=== PATIENT | female | born 1945 | race Caucasian/White ===

== ENCOUNTER 2020-04-22 19:46 | Inpatient (IN) | payer MEDICARE, OTHER ==
[2020-04-22 22:34] VITALS: BMI 41.3
[2020-04-23] MEDS ORDERED: Acetaminophen 325 MG TAB PO PRN (02:35)
[2020-04-23] MEDS ORDERED: Guaifenesin DM 100-10/5 ML UDCUP PO PRN (02:35)
--- NOTE | 2020-04-23 03:10 | PDOC.HHP ---
Hospitalist HPI - History of Present Illness History of Present Illness: ADMISSION DATE: 04/22/2020 TIME OF ASSESSMENT: 2345 PRIMARY CARE PHYSICIAN: [id number] CHIEF COMPLAINT: Shortness of breath HPI: Patient is a 75-year-old female past medical history significant for hypertension. They are currently visiting from [place] when she developed a sudden onset of shortness of breath. Patient states that she has had a cough for a week now however she appears to be a poor historian. She denies any fever, chills, contact with sick persons, GI upset. They did drive from [place] but had frequent stops. She had a negative Covid test earlier today. All imaging and lab work referenced in the H&P were obtained from her [facility] earlier today. ED COURSE: Vital Signs: Blood pressure 145/54, temp 98.9 oral, heart rate 94, respiratory rate 20, O2 saturation 99% on 2 L, no pain Patient was transferred here from [facility]. She had lab work completed including blood cultures, chest x-ray, chest CT, medication administration. She was administered vancomycin 1 g, normal saline 1 L, Rocephin 1 g, azithromycin 500 mg. PAST MEDICAL HISTORY: Hypertension PAST SURGICAL HISTORY: Shoulder surgery SOCIAL HISTORY: Patient lives at home with her . She denies alcohol, drug, tobacco use FAMILY HISTORY: Noncontributory ALLERGIES: Sulfa,Deconomine, Geodon CURRENT MEDICATIONS: Omeprazole 20 mg daily Vitamin D3 10,000 units Probiotic Claritin Adult multivitamin Melatonin 3 mg at night Lotemax Cerefolin Depakote 250 mg in a.m., 500 mg in p.m. Seroquel 25 mg Hydrochlorothiazide 12.5 mg Flonase Hospitalist ROS - Review of Systems Respiratory: reports: cough, shortness of breath, SOB with excertion, wheezing All other systems reviewed; all pertinent +/- noted in HPI/Subj - Exam General Appearance: awake alert, ill appearing Eye: PERRL ENT: normocephalic atraumatic Neck: supple Heart: RRR, no murmur, no gallops, no rubs, normal peripheral pulses Respiratory: rhonchi, tachypneic, wheezes Gastrointestinal: soft, non-tender, non-distended, normal bowel sounds Neurological: no focal deficits Musculoskeletal: no muscle wasting Psychiatric: normal affect Hospitalist Results - Labs Lab results: As obtained from the [facility] BNP: 129 Urinalysis: Negative for acute findings Sodium 144 Potassium 4.0 CO2 32 Chloride 104 Glucose 110 Calcium 11.2 BUN 24 Creatinine 1.1 GFR 51 WBC 20.8 Hemoglobin 14.7 Hematocrit 42.1 Platelets 335 Negative Covid test Negative respiratory panel - Radiology Interpretation CT scan - chest Status: report reviewed by me Additional Comment: CTA of the chest Findings: Pulmonary arteries: No filling defects identified Aortic aneurysm: No aneurysm Aortic dissection: No dissection Lungs and pleura: 1. Large multilocular right-sided pleural effusion 2. Concern for cavitary airspace/abscess in a region of atelectasis 3. Subsegmental atelectasis of the right lower lobe 4. Significant atelectasis of the right upper and middle lobes Impression: There is a cavitary lesion in the right lower lobe with air-fluid level measuring up to nearly 4 cm concerning for pulmonary abscess. This could also reflect a cavitating neoplasm or metastatic lesion. Large right-sided multilocular pleural effusion. Varying degrees of atelectasis are moderate to severe throughout the right lung. Chest x-ray Status: report reviewed by me Additional Comment: Impression: Right lung infiltrates with pleural effusion Hospitalist H&P A/P - Plan Plan: Possible pulmonary abscess along with pneumonia and pleural effusion Consult pulmonary and ID Continue IV antibiotics Request blood culture results from [facility] Leukocytosis Initial white blood count was 20.8 Recheck labs in a.m. Currently afebrile Hypoxia with acute respiratory failure Presented to ER 89% on room air Currently maintaining 93% on 2 L nasal cannula Continue close monitoring of respiratory status Hypertension Restart home medications once reconciled VTE prophylaxis in place with SCDs CODE STATUS: Full Surrogate decision-maker is her Patient and plan of care discussed with Dr Gomez
[2020-04-23] MEDS ORDERED: Vancomycin 1 GM in Premix Bag 1 BAG IVPB SCH (09:00)
--- NOTE | 2020-04-23 09:25 | RAD ---
Portable frontal chest radiograph: 04/23/2020 COMPARISON: None HISTORY: Evaluate pleural effusion FINDINGS: The left lung appears clear. No pneumothorax is evident. There is prominent opacification involving the lateral and mid aspect of the right hemithorax from ap ex to base with partially aerated right lung medially. Partial opacification of the right hemithorax suggests a combination of pleural fluid and underlying nonspecific parenchymal opacity. Th e right pleural effusion may be complex/loculated given its configuration. Underlying infectious pneumonitis and/or mass lesion cannot be excluded. No comparison imaging is available. IMPRESSION: Significant partial opacification of the right hemithorax suggesting a combination of ple ural fluid and nonspecific adjacent parenchymal opacity. Findings could be related to inflammatory/infectious process or neoplasia. CT may be beneficial.
[2020-04-23 10:07] LABS: ALT (SGPT) 17 U/L (8-55); AST (SGOT) 18 U/L (5-34); Albumin 2.8 g/dL (3.4-4.8); Alkaline Phosphatase 124 U/L (40-110); Anion Gap 15 mmol/L (10-20); BUN (Urea Nitrogen) 31 mg/dL (9.8-20.1); Bilirubin, Total 0.5 mg/dL (0.2-1.2); Calc. Creatinine Clearance 96 mL/min (70-130); Carbon Dioxide 26 mmol/L (23-31); Chloride 103 mmol/L (98-107); Globulin 3.4 g/dL (2.4-3.5); Glucose 117 mg/dL (83-110); Potassium 3.9 mmol/L (3.5-5.1); Protein, Total 6.2 g/dL (6.0-8.3); Sodium 140 mmol/L (136-145)
[2020-04-23 10:57] LABS: Hemoglobin 13.3 g/dL (12.0-16.0); Mean Corpuscular HGB CONC 31.2 g/dL (32.0-36.0); Mean Corpuscular Hemoglobin 30.6 pg (27.0-31.0); Mean Corpuscular Volume 98.3 fL (78.0-98.0); Mean Platelet Volume 8.7 fL (7.4-10.4); Platelet Count 331 thou/uL (130-400); RBC Distribution Width 12.4 % (11.5-14.5); Red Blood Cell (RBC) Count 4.34 mill/uL (4.20-5.40); White Blood Cell (WBC) Count 29.6 thou/uL (4.8-10.8)
[2020-04-23 11:00] LABS: Band 30 % (5-11); Lymphocytes 2 % (21-51); MDiff Complete? YES; Metamyelocyte 1 % (0-0); Monocytes 5 % (0-10); Neutrophil 62 % (42-75); Platelet Morphology Comment Appears Adequate; Polychromasia SLIGHT = 2-3 cells (100X) (0-2/hpf)
--- NOTE | 2020-04-23 11:28 | CON ---
DATE OF CONSULTATION: HISTORY OF PRESENT ILLNESS: A 75-year-old female from [facility] out of town visiting her daughter in [place], [place], presented to a physician in [place] [facility] in [place] with shortness of breath on [facility]. Workup including a CT and a chest x-ray, which shows loculated pleural effusion. Unfortunately, we do not have any CT images over here. A chest x-ray taken today does show pleural effusion. Very poor historian. She appears somewhat confused, sitting on the side of the bed eating breakfast, appears to be in no distress. She is a nonsmoker. No prior history of TB, pneumonia, or bronchial asthma. PAST MEDICAL HISTORY: Pertinent for no major medical problems. No history of diabetes. No surgeries recently. Past surgery of shoulder surgery. SOCIAL HISTORY: No alcohol or tobacco abuse. MEDICATIONS: List of medicines from home included: 1. Flonase. 2. Hydrochlorothiazide. 3. Depakote 250 at nighttime, 500 in the daytime. 4. Cholestyramine 4 g. 5. Eye solution. 6. Vitamins. 7. Naprosyn. 8. Omeprazole. 9. Aspirin. ALLERGIES: GEODON AND SULFA. REVIEW OF SYSTEMS: Difficult to obtain. PHYSICAL EXAMINATION: VITAL SIGNS: Temperature 98, pulse 90, respiratory rate 36, and sats 100%, blood pressure 120/80. CHEST: Decreased breath sounds in right lung. Left lung unremarkable. CARDIAC: Normal S1, S2. No gallops. ABDOMEN: No masses. LABORATORY DATA: Lab from the outside ER shows a white count 20,000. Lytes were normal. Creatinine was normal. ASSESSMENT AND PLAN: 1. Right pleural effusion, rule out empyema. 2. Encephalopathy. We will try and get additional information from family members as they arrive. I am going to go ahead and do a thoracentesis for the reaction above. We may very well have to repeat a CT over here since we unable to see the actual CT images from elsewhere. This is a consultation note, 70 minutes, 50% direct patient care exclusive of the thoracentesis. Job ID: [id number]
[2020-04-23] MEDS ORDERED: Hydrochlorothiazide 25 MG TAB PO SCH (12:00)
[2020-04-23] MEDS ORDERED: Cholecalciferol 1,000 UNITS (25 MCG) TAB PO SCH (12:00)
[2020-04-23] MEDS ORDERED: Multivitamin W/ Minerals 1 TAB PO SCH (12:00)
[2020-04-23] MEDS ORDERED: Aspirin 81 mg Enteric Coated Tablet PO SCH (12:00)
[2020-04-23] MEDS: Clindamycin/D5W 600 MG in Premix Bag 1 BAG IVPB SCH ×2 (12:36→22:33)
--- NOTE | 2020-04-23 13:27 | RAD ---
RADIOGRAPH CHEST 1 VIEW: DATE: 04/23/2020 TIME: 1:08 PM HISTORY: 75-year-old female status post thoracentesis for right pleural effusion. COMPARISON: 04/23/2020 9:13 AM FINDINGS: Previously demonstrated large loculated pleural effusion from apex to base, has become smaller. It is located at the lateral aspect of the right hemithorax. Improved aeration of right upper lobe. Right lower lung zone remains densely opacified. No cardiomegaly. No cardiomediastinal shift from mid line. Left lung remains clear. IMPRESSION: Interval decrease in volume of large right loculated pleural effusion after pleurocentesis, without p neumothorax.
[2020-04-23 14:06] LABS: Fluid, pH - Pleural Fld 7.37 (7.60 - 7.66)
[2020-04-23 14:37] LABS: Fluid, Triglycerides 29 mg/dL (Not Available); Pleural Fluid, Amylase Less than 30 U/L (Not Available); Pleural Fluid, Glucose 84 mg/dL; Pleural Fluid, LDH 505 U/L (Not Available); Pleural Fluid, Protein 3.5 g/dL
[2020-04-23 14:58] LABS: RBC Count-Automated (BF) 516 /cu.mm; WBC/Nucleated-Auto (BF) 3032 uL
[2020-04-23 15:49] LABS: BF Color Yellow; Body Fluid Source Pleural Fluid; Clarity Hazy (Clear); Tube # EDTA
[2020-04-23 15:52] LABS: BF Segmented Neutrophils 67 %; Cell Count Non Hematic 16 %; Eosinophils 1 %; Lymphocytes 15 %
--- NOTE | 2020-04-23 16:14 | PDOC.HOSPP ---
- Subjective Encounter Date: 04/23/20 Encounter Time: 10:30 Subjective: pt up in chair hard of hearing. - Objective Vital Signs & Weight: Vital Signs (12 hours) Temp Pulse Resp BP Pulse Ox 04/23/20 08:55 98.3 F 99 36 H 125/80 100 04/23/20 04:54 98.3 F 102 H 18 130/60 97 Weight Weight 256 lb 8 oz I&O: 04/22/20 04/23/20 04/24/20 06:59 06:59 06:59 Intake Total 240 Output Total 100 Balance 140 Result Diagrams: 04/23/20 09:30 04/23/20 09:30 Hospitalist ROS - Review of Systems Respiratory: reports: cough, shortness of breath Cardiovascular: denies: chest pain, palpitations, orthopnea, paroxysmal noc. dyspnea, edema, light headedness, other Gastrointestinal: denies: nausea, vomiting, abdominal pain, diarrhea, constipation, melena, hematochezia, other - Medication Medications: Active Medications Generic Name Dose Route Start Last Admin Trade Name Freq PRN Reason Stop Dose Admin Clindamycin Phosphate/Dextrose 50 mls @ 100 mls/hr 04/23/20 12:00 04/23/20 12:36 600 mg/ Device IVPB 50 mls 0400,1200,2000 POPEYE Administration - Exam Neck: negative: supple, symmetric, no JVD, no thyromegaly, no lymphadenopathy, no carotid bruit, JVD Heart: negative: RRR, no murmur, no gallops, no rubs, normal peripheral pulses, irregular, diminshed peripheral pulses, murmur present, II/IV, III/IV Respiratory - other findings: decrease breath sounds to right lung Gastrointestinal: negative: soft, non-tender, non-distended, normal bowel sounds, no palpable masses, no hepatomegaly, no splenomegaly, no bruit, no guarding, no rigidity, tender to palpation, distended, diminished bowl sounds, voluntary guarding Extremities: 2+ LE edema Hosp A/P (1) Cavitary lesion of lung Code(s): J98.4 - OTHER DISORDERS OF LUNG Status: Acute (2) SOB (shortness of breath) Code(s): R06.02 - SHORTNESS OF BREATH Status: Acute (3) Sepsis Code(s): A41.9 - SEPSIS, UNSPECIFIED ORGANISM Status: Acute - Plan will continue abx will add anaerobic coverage. will get disk from outside hospital. will check quantiferon, ID and pulmonary consulted.
[2020-04-23] MEDS ORDERED: Azithromycin 500 MG in Sodium Chloride 0.9% 250 ML 250 ML IVPB SCH (18:00)
[2020-04-23] MEDS: cefTRIAXone\\ROCEPHIN 2 GM in Sodium Chloride 0.9% 100 ML IVPB SCH (18:14)
--- NOTE | 2020-04-23 18:20 | CON ---
DATE OF CONSULTATION: 04/23/2020 REASON FOR CONSULTATION: Parapneumonic effusion, pneumonia, lung abscess. HISTORY OF PRESENT ILLNESS: A 75-year-old who is visiting from [place], family members here in town, and developed acute medical illness with dyspnea, cough, preceded this dyspnea for about a week, did not have any documented fever or chills, went to [facility], and had a CT of the chest there, was given Rocephin, azithromycin, and vancomycin, and transferred for admission. Once the results were available, basically those demonstrated a large multilocular right-sided pleural effusion, possible abscess in the region (in the right lung). There is air-fluid level measuring up to 4 cm, so Dr. Joseph did a thoracentesis and the fluid had 3000 WBCs with predominance of segmented neutrophils and pending pathology review. LDH of 500, glucose 84, amylase less than 30, protein 3.5. I believe that chest surgeon is going to operate her tomorrow. She currently is in no distress. Denies any headaches. No visual symptoms, sore throat, odynophagia, or dysphagia. Not much pain. Dyspnea has improved. No abdominal pain or diarrhea. No genitourinary symptoms, osteoarthrosis symptoms, which are chronic. No neurological symptoms. PAST MEDICAL HISTORY: Hypertension, obesity, she had falls related to syncopal events. SOCIAL HISTORY: She lives in [place]. She is . Does not smoke. Does not drink. Rarely drinks alcoholic beverages. She also has a history of bipolar syndrome, on Depakote for management. Does not take sedatives. ALLERGIES: SULFA DRUGS, GEODON. CURRENT MEDICATIONS: 1. Floranex. 2. Ecotrin. 3. Ceftriaxone. 4. Vitamin D. 5. Clindamycin. 6. Depakote. 7. Flonase. 8. Hydrochlorothiazide. 9. Multivitamins. REVIEW OF SYSTEMS: Noted. PHYSICAL EXAMINATION: VITAL SIGNS: Normal temperature, blood pressure 120/80, heart rate 99, respiratory rate 18 to 36, she is saturating 100% on 3 L nasal cannula. When I arrived in the room, she was sleeping. Her gave most of the information and she woke up. She was oriented. Denied any symptoms as above. SKIN: Normal peripheral IV access. GENERAL: She is voiding in the bedside commode. LYMPHATIC: No lymphadenopathy. HEENT: Ocular movements conjugate, quite a few teeth in place with some work done in fairly decent shape. Oral mucosa normal. NECK: Supple. LUNGS: Symmetric. Clear breath sounds. Lungs with diminished breath sounds as expected in the right base. No wheezing. HEART: S1 and S2. Regular rate. ABDOMEN: Soft, not distended or tender. No ascites. : No bladder distention. MUSCULOSKELETAL: No joint inflammatory activity. NEUROLOGIC: Moves extremities equally. Cognitive function appears to be intact. LABORATORY DATA: Pleural fluid as indicated above. White cell count 29,000 with 30% bands, hemoglobin 13. Creatinine 0.96, alkaline phosphatase 124, albumin 2.8. SARS-CoV PCR done as well as a rapid test and both were negative at [facility] and here chest x-ray with before and after thoracentesis images. ASSESSMENT: Obesity, bipolar disorder, and acute onset of respiratory symptoms with large pleural effusion and suppurative inflammatory process of right lung adjacent to the pleural effusion most likely due to oral georgi type bacteria with microaerophilic streptococci or anaerobes causing this process. The patient has been started on broad- spectrum coverage with clindamycin and Rocephin and I believe surgical intervention scheduled for tomorrow. Following that, then once we have the culture results as well as the sample submitted today, plan long-term therapy. The possibility of malignancy and atypical pathogens are considered to be less likely. Job ID: [id number]
--- NOTE | 2020-04-23 18:41 | CON ---
DATE OF CONSULTATION: HISTORY OF PRESENT ILLNESS: This is a 75-year-old patient with a history of bipolar disorder with about 1-month history of cough and then about a 1-week history of more severe cough associated with some more recent confusion and difficulty standing, prompting the patient's family to bring her to the hospital. She does not live locally, but she and her were visiting family in [place]. She was found to have a large right pleural effusion with thoracentesis of a liter revealing some greenish fluid and flow then ceased, yet her chest x-ray shows residual loculated collection. PAST MEDICAL HISTORY: Includes bipolar disorder with no other major medical problems. She does have sleep apnea, but refuses to wear her BiPAP at night. She has no cardiac history according to the . PAST SURGICAL HISTORY: Significant for hand surgery, shoulder surgery, broken leg from a fall, pituitary adenoma removal, cataract surgery, and cholecystectomy. ALLERGIES: TO GEODON AND SULFA. HOME MEDICATIONS: Include 1. Depakote 125 mg 2 tablets at night and 4 tablets in the daytime. 2. Hydrochlorothiazide 100 mg daily. 3. Prilosec 10 mg daily. 4. She takes cholestyramine 4 g daily. PHYSICAL EXAMINATION: GENERAL: The patient is quite somnolent, and when she awakens, is hard of hearing. LUNGS: She has some expiratory wheezing on the right side, but otherwise the lungs are clear anteriorly. CARDIAC: Reveals a regular rate and rhythm with no murmurs. ABDOMEN: Obese. EXTREMITIES: Without edema. VITAL SIGNS: Height 5 feet 6 inches, weight 256 pounds with a BMI of 41. IMPRESSION AND PLAN: At this time, I have reordered a repeat CT scan with plan for right thoracoscopy/thoracotomy tomorrow. I have gone over the procedure, risks, and complications with the , and he asked some questions, which I have answered in this regard, and informed consent has been obtained. Job ID: [id number]
--- NOTE | 2020-04-23 19:57 | CT ---
CT CHEST WITHOUT CONTRAST: Date: 04-23-2020 PROVIDED CLINICAL HISTORY: Shortness of breath, pleural effusion. FINDINGS: No CT comparisons. Vascular calcification demonstrated. The heart, pericardium, and great vessels demonstrate an otherwi se unremarkable unenhanced CT appearance. Evaluation for thoracic lymph node enlargement is limited in the absence of IV contrast. There is no evidence for axillary lymph node enlargement. There are prominent by number and upper limits normal i n size pretracheal lymph nodes. Hilar adenopathy may be present on the right. There is pleural fluid on the right, which appears loculated at the posterolateral aspect of the righ t hemithorax in its mid to upper portions. Some pleural fluid is also loculated at the anterior aspec t of the right lower chest. There is consolidation involving the right lower lobe involving much of the basilar segments. There i s a poorly defined/narrowed appearance to the distal right lower lobe bronchus and proximal segmental basilar bronchi suspicious for endobronchial mass/material. The left lung appears free of significant opacity. There is no left pleural fluid evident. There is n o evidence for pneumothorax. The visualized portions of the upper abdomen demonstrate an unremarkable unenhanced CT appearance. The osseous structures demonstrate no concerning lytic or blastic lesions. IMPRESSION: 1. Consolidation involving the right lower lobe, which could be on the basis of a post obstructive pn eumonitis given the apparent airway effacement described. 2. Mediastinal and possible right hilar lymph node enlargement. 3. Right pleural fluid with loculation as described. POS: MONICA
[2020-04-23] MEDS: Calcium Carbonate + Vit D 250 MG TAB PO SCH (22:33)
[2020-04-23] MEDS: Cholestyramine/Aspartame 4 gm Packet PO SCH (22:33)
[2020-04-24 04:34] LABS: #Basophils 0.1 thou/uL (0.0-0.2); #Eosinphils 0.1 thou/uL (0.0-0.7); #Monocytes 1.7 thou/uL (0.11-0.59); #Neutrophils 20.3 thou/uL (1.40-6.50); %Basophils 0.2 % (0.0-1.0); %Eosinophils 0.4 % (0.0-10.0); %Lymphocytes 4.3 % (21.0-51.0); %Monocytes 7.2 % (0.0-10.0); %Neutrophils 87.8 % (42.0-75.0); Hemoglobin 12.8 g/dL (12.0-16.0); Mean Corpuscular HGB CONC 32.4 g/dL (32.0-36.0); Mean Corpuscular Hemoglobin 32.1 pg (27.0-31.0); Mean Platelet Volume 8.6 fL (7.4-10.4); Platelet Count 266 thou/uL (130-400); RBC Distribution Width 12.4 % (11.5-14.5); Red Blood Cell (RBC) Count 3.99 mill/uL (4.20-5.40); White Blood Cell (WBC) Count 23.1 thou/uL (4.8-10.8)
[2020-04-24 04:59] LABS: Anion Gap 15 mmol/L (10-20); BUN (Urea Nitrogen) 29 mg/dL (9.8-20.1); Calc. Creatinine Clearance 116 mL/min (70-130); Calcium 10.1 mg/dL (7.8-10.44); Carbon Dioxide 27 mmol/L (23-31); Chloride 100 mmol/L (98-107); Glucose 110 mg/dL (83-110); Potassium 3.9 mmol/L (3.5-5.1); Sodium 138 mmol/L (136-145)
[2020-04-24] MEDS: Clindamycin/D5W 600 MG in Premix Bag 1 BAG IVPB SCH ×3 (05:54→19:29)
--- NOTE | 2020-04-24 07:42 | OP ---
DATE OF PROCEDURE: 04/23/2020 PROCEDURE PERFORMED: Thoracentesis. INDICATION: Pleural effusion. DESCRIPTION OF PROCEDURE: After informed consent, the right posterior thorax was cleaned with chlorhexidine. 1% lidocaine was infiltrated into the 9th intercostal space and pleural cavity was entered in. Turbid yellow fluid was removed about 2 mL. Additional lidocaine was re-infiltrated into the same area. At this time, additional 3 mL of turbid yellow fluid was removed. Thereafter, using an 8-Telugu catheter and a vacuum bottle, a total of 1200 mL of fluid was removed. PH is being ordered. Culture is being ordered. Gram stain is being ordered. Cytology is being ordered. The patient tolerated the procedure well. Further recommendation after above. Job ID: [id number]
--- NOTE | 2020-04-24 07:43 | RAD ---
Chest one view HISTORY: Pleural effusion. Pneumonia. Follow-up. COMPARISON: 04/09/2020. FINDINGS: Cardiac silhouette is magnified by projection is slightly shifted leftward. There is calcif ication of the aorta. Pulmonary vasculature remains engorged. Dense pleural opacity along the lateral aspect of the right side of the chest is slightly more pronou nced than on the prior exam, allowing for slight rotation or recumbent positioning of the patient on this exam labeled "upright". Associated atelectasis of the adjacent portion of the right lung. Lef t lung is clear. No evidence of pneumothorax. Postoperative changes right shoulder. IMPRESSION : Probable slight increase in the loculated right pleural fluid.
[2020-04-24] MEDS: Hydrochlorothiazide 25 MG TAB PO SCH (09:04)
[2020-04-24] MEDS: Lactinex Tablet PO SCH (09:06)
[2020-04-24] MEDS: Cholecalciferol 1,000 UNITS (25 MCG) TAB PO SCH (09:06)
[2020-04-24] MEDS: Fluticasone Propionate Nasal Spray 16 gm Bottle NASAL SCH (09:06)
--- NOTE | 2020-04-24 09:37 | PRG ---
DATE OF SERVICE: 04/24/2020 SUBJECTIVE: Fernie Fitch remains in the hospital. OBJECTIVE: VITAL SIGNS: Temperature 98, pulse , sats 97% on room air and is better, blood pressure . CHEST: Decreased breath sounds in right lung, left unremarkable. CARDIAC: Normal S1, S2. No gallops. ABDOMEN: No masses. LABORATORY STUDIES: Lytes unremarkable. White count 23,000. ASSESSMENT: 1. Right-sided loculated pleural effusion, status post thoracentesis. 2. Bipolar disorder. PLAN: Decortication. Continue antibiotics and supportive care. We will follow. Job ID: [id number]
[2020-04-24] MEDS ORDERED: Rocuronium Bromide 10 MG/ML (10ML VIAL) ONE (09:54)
[2020-04-24] MEDS ORDERED: Ketorolac Tromethamine 30 MG/ML VIAL ONE (09:54)
[2020-04-24] MEDS ORDERED: Ondansetron PF 4 MG/2 ML Vial ONE (09:54)
[2020-04-24] MEDS ORDERED: PROPOFOL 200 MG/20 ML VIAL ONE (09:54)
[2020-04-24] MEDS ORDERED: Lidocaine 1% PF 5 ML VIAL ONE (09:54)
[2020-04-24] MEDS ORDERED: Dexamethasone 20 MG/5 ML VIAL ONE (09:54)
[2020-04-24] MEDS ORDERED: Fentanyl 100 MCG/2 ML VIAL ONE ×4 (09:58→20:02)
[2020-04-24] MEDS ORDERED: Ondansetron HCl/PF 4 MG/2 ML Vial IVP PRN (11:59)
[2020-04-24] MEDS ORDERED: Ketorolac Tromethamine 30 MG/ML VIAL IVP PRN (14:26)
[2020-04-24] MEDS ORDERED: traMADol HCl 50 MG TAB PO PRN (14:26)
--- NOTE | 2020-04-24 14:55 | RAD ---
XR Chest 1 View History: Decortication Comparison: Radiograph same day. Findings: 2 separate right thoracostomy tubes are in place with side ports within the thoracic cavity . Moderate layering effusion. Heart size is enlarged. Left lung relatively clear. Impression: Moderate-large layering right pleural effusion post decortication.
--- NOTE | 2020-04-24 16:19 | PDOC.HOSPP ---
- Subjective Encounter Date: 04/24/20 Encounter Time: 16:18 Subjective: Ms. Fitch was seen today in follow-up of pneumonia with parapneumonic effusion, and empyema. She was seen in PACU, and is post-op. She is a bit confused, and says she wants to go home. She has been kept in PACU due to difficulty weaning from BiPAP. - Objective Vital Signs & Weight: Vital Signs (12 hours) Temp Pulse Resp BP Pulse Ox 04/24/20 12:50 85 22 H 93 L 04/24/20 07:59 98.8 F 91 16 126/59 L 97 04/24/20 05:01 98.5 F 92 15 118/76 92 L Weight Weight 256 lb 8 oz I&O: 04/23/20 04/24/20 04/25/20 06:59 06:59 06:59 Intake Total 240 240 Output Total 100 Balance 140 240 Result Diagrams: 04/24/20 04:25 04/24/20 04:25 Hospitalist ROS - Medication Medications: Active Medications Generic Name Dose Route Start Last Admin Trade Name Freq PRN Reason Stop Dose Admin Acidophilus 1 tab 04/24/20 09:00 04/24/20 09:06 Lactinex Tablet PO 1 tab DAILY POPEYE Administration Calcium/Vitamin D 2 mg 04/23/20 21:00 04/23/20 22:33 Calcium Carbonate + Vit D 250 Mg Tab PO 2 mg BID POPEYE Administration Cholecalciferol 10,000 units 04/24/20 09:00 04/24/20 09:06 Cholecalciferol 1,000 Units (25 Mcg) Tab PO Not Given DAILY POPEYE Cholestyramine Resin 4 gm 04/23/20 21:00 04/23/20 22:33 Cholestyramine/Aspartame 4 Gm Packet PO 4 gm HS POPEYE Administration Divalproex Sodium 500 mg 04/24/20 09:00 04/24/20 09:05 Divalproex Sodium Er 500 Mg Tablet PO 500 mg DAILY POPEYE Administration Divalproex Sodium 250 mg 04/23/20 21:00 04/23/20 22:33 Divalproex Sodium Er 250 Mg Tab PO 250 mg HS POPEYE Administration Fluticasone Propionate 0 gm 04/24/20 09:00 04/24/20 09:06 Fluticasone Propionate Nasal Shelley 16 Gm Bottle NASAL Not Given DAILY POPEYE Hydrochlorothiazide 12.5 mg 04/24/20 09:00 04/24/20 09:04 Hydrochlorothiazide 25 Mg Tab PO 12.5 mg DAILY POPEYE Administration Ceftriaxone Sodium 2 gm/ 100 mls @ 200 mls/hr 04/23/20 17:00 04/23/20 18:14 Sodium Chloride IVPB 100 mls Q24HR POPEYE Administration Clindamycin Phosphate/Dextrose 50 mls @ 100 mls/hr 04/23/20 12:00 04/24/20 05:54 600 mg/ Device IVPB 50 mls 0400,1200,2000 POPEYE Administration Pantoprazole Sodium 40 mg 04/24/20 09:00 04/24/20 09:06 Pantoprazole 40 Mg Tab PO 40 mg DAILY POPEYE Administration - Exam Eye: PERRL, anicteric sclera Heart: RRR, no murmur, no gallops, no rubs, normal peripheral pulses Respiratory: no rales (decreased breath sounds at the bases, and coarse breath sounds throughout) Gastrointestinal: soft, non-tender, non-distended, normal bowel sounds, no palpable masses, no hepatomegaly Extremities: no cyanosis, 1+ LE edema Hosp A/P (1) Acute and chronic respiratory failure Code(s): J96.20 - ACUTE AND CHR RESP FAILURE, UNSP W HYPOXIA OR HYPERCAPNIA Status: Acute (2) Pneumonia Code(s): J18.9 - PNEUMONIA, UNSPECIFIED ORGANISM Status: Acute (3) Empyema, right Code(s): J86.9 - PYOTHORAX WITHOUT FISTULA Status: Acute (4) Hypertension Code(s): I10 - ESSENTIAL (PRIMARY) HYPERTENSION Status: Acute (5) Morbid obesity with BMI of 40.0-44.9, adult Code(s): E66.01 - MORBID (SEVERE) OBESITY DUE TO EXCESS CALORIES; Z68.41 - BODY MASS INDEX [BMI]40.0-44.9, ADULT Status: Acute - Plan * Acute on chronic respiratory failure due to pneumonia with right emypema- She is s/p decortication. She has been held in PACU due to difficulty weaning off BiPAP. She likely should be [facility] to [facility] ( I am told they do not have any beds available) Will therefore defer to Pulmonary * She may need BiPAP or CPAP at night * Continue Rocephin and Clindamycin * Follow-up of sputum studies and cultures * Follow-up of AFB and Quanteferon * HTN- blood pressure is stable
[2020-04-24] MEDS ORDERED: cefTRIAXone\\ROCEPHIN 2 GM VIAL ONE (17:25)
[2020-04-24] MEDS ORDERED: Sodium Chloride 0.9% 100 ML ONE (17:25)
[2020-04-24] MEDS: Aspirin 81 mg Enteric Coated Tablet PO SCH (18:11)
[2020-04-24] MEDS: Calcium Carbonate + Vit D 250 MG TAB PO SCH (18:11)
[2020-04-24] MEDS: Multivitamin W/ Minerals 1 TAB PO SCH (18:12)
[2020-04-24] MEDS ORDERED: Clindamycin/D5W 600 mg/50 ml Premix Bag ONE (19:12)
[2020-04-25] MEDS: Calcium Carbonate + Vit D 250 MG TAB PO SCH (01:02)
[2020-04-25] MEDS: cefTRIAXone\\ROCEPHIN 2 GM in Sodium Chloride 0.9% 100 ML IVPB SCH (01:02)
[2020-04-25] MEDS: Enoxaparin Sodium 40 MG/0.4 ML SYRINGE SC SCH ×2 (01:03→21:14)
[2020-04-25] MEDS: Cholestyramine/Aspartame 4 gm Packet PO SCH ×2 (01:03→21:14)
[2020-04-25] MEDS: Clindamycin/D5W 600 MG in Premix Bag 1 BAG IVPB SCH ×3 (04:00→20:19)
[2020-04-25 05:26] LABS: Anion Gap 17 mmol/L (10-20); BUN (Urea Nitrogen) 42 mg/dL (9.8-20.1); Calc. Creatinine Clearance 86 mL/min (70-130); Carbon Dioxide 26 mmol/L (23-31); Chloride 99 mmol/L (98-107); Glucose 115 mg/dL (83-110); Potassium 4.3 mmol/L (3.5-5.1); Sodium 138 mmol/L (136-145)
[2020-04-25 06:05] LABS: Band 36 % (5-11); Lymphocytes 6 % (21-51); MDiff Complete? YES; Mean Corpuscular HGB CONC 32.2 g/dL (32.0-36.0); Mean Corpuscular Volume 99.4 fL (78.0-98.0); Mean Platelet Volume 8.8 fL (7.4-10.4); Neutrophil 58 % (42-75); Platelet Count 338 thou/uL (130-400); Platelet Morphology Comment Appears Adequate; RBC Distribution Width 12.8 % (11.5-14.5); Red Blood Cell (RBC) Count 4.05 mill/uL (4.20-5.40); White Blood Cell (WBC) Count 26.8 thou/uL (4.8-10.8)
--- NOTE | 2020-04-25 06:26 | OP ---
DATE OF PROCEDURE: 04/24/2020 PREOPERATIVE DIAGNOSIS: Empyema. POSTOPERATIVE DIAGNOSIS: Empyema secondary to lower lobe pneumonia. PROCEDURE PERFORMED: Thoracoscopy with total lung decortication, drainage of empyema. ANESTHESIA: General. ESTIMATED BLOOD LOSS: Minimal. DESCRIPTION OF PROCEDURE: After adequate anesthesia had been obtained, the patient was placed in the left lateral decubitus position. She was then prepped and draped. A skin crease was chosen for the initial incision and using blunt dissection and sharp dissection, carried down to the rib cage and the chest was entered. It felt like the diaphragm was right at that incision. However, a finger inserted more cranial resulted in some yellow to clear fluid. A 10 trocar was placed and the scope was inserted and loculations were broken down to allow a second more cranial and anterior port site. Following this, using both port sites interchangeably the upper lobe was fully mobilized from the chest wall. The lower lobe was more solid in nature and one area of suspected perforation with purulence was found. Peel was removed from the lower lobe however a plane could not be established between diaphragm (which was elevated) and the lower lobe. Debris removed from the chest wall. Following this, about 2 L of irrigation was used to irrigate the chest and a #28 straight and 32 right angle chest tube were placed. Wounds were then closed and the patient was to be taken to the recovery room. Job ID: [id number] [facility]
[2020-04-25] MEDS: Cholecalciferol 1,000 UNITS (25 MCG) TAB PO SCH (08:18)
[2020-04-25] MEDS: Lactinex Tablet PO SCH (08:19)
[2020-04-25] MEDS: Hydrochlorothiazide 25 MG TAB PO SCH (08:19)
[2020-04-25] MEDS: Calcium Carbonate 600 MG + Vit D TAB PO SCH ×2 (08:19→22:36)
[2020-04-25] MEDS: Aspirin 81 mg Enteric Coated Tablet PO SCH (08:19)
[2020-04-25] MEDS: Fluticasone Propionate Nasal Spray 16 gm Bottle NASAL SCH (08:20)
[2020-04-25] MEDS: Multivitamin W/ Minerals 1 TAB PO SCH (08:20)
--- NOTE | 2020-04-25 09:33 | PRG ---
DATE OF SERVICE: 04/25/2020 SUBJECTIVE: Fernie Fitch this morning is awake, alert, and responsive. She has had breakfast. She is off the BiPAP. OBJECTIVE: VITAL SIGNS: Temperature 97, pulse 70, sats 100% on 3 L. Blood pressure . CHEST: Decreased breath sounds. No wheezing. CARDIAC: Normal S1, S2. ABDOMEN: No masses. LABORATORY DATA: White count is 26,000, H and H 10 and 40, platelet count is normal. She has band shift, BUN is 42, creatinine 1. ASSESSMENT: Respiratory failure, morbid obesity, bipolar disorder, aggressive PT supportive care, antibiotics. So far, all cultures are negative. She remains stable. She can be transferred to medical floor later on. We will continue to follow. Job ID: [id number]
--- NOTE | 2020-04-25 09:45 | PRG ---
DATE OF SERVICE: 04/25/2020 The patient is afebrile on post decortication. She was quite sleepy yesterday and I think that this is her baseline as best I can tell from talking to her. She says she sleeps most of the day at home. Her chest x-ray is improved compared to preop and she still has a rather dense right lower lobe consolidation from pneumonia. Her chest tube output is 220 mL with no air leak. Her lungs are clear and her pain is controlled. She is off the BiPAP and I think probably her chest tubes will be removed in the next day or so. I discussed the case with Dr. Joseph in regard to antibiotics, and he is switching her to Augmentin. Job ID: [id number]
--- NOTE | 2020-04-25 09:59 | RAD ---
PORTABLE CHEST: INDICATION: Empyema. ICU followup. COMPARISON: 04/24/2020. FINDINGS: There are 2 right-sided chest tubes which are unchanged in position. Opacification of the right lowe r lung is again seen consistent with a history of empyema. The left lung remains aerated and clear. IMPRESSION: No significant interval change. POS: AGW
[2020-04-25] MEDS: Amoxicillin/Potassium Clav 875 MG TAB PO SCH ×2 (10:51→22:36)
--- NOTE | 2020-04-25 12:38 | PDOC.HOSPP ---
- Subjective Encounter Date: 04/25/20 Encounter Time: 12:36 Subjective: sleepy but arousable - Objective Vital Signs & Weight: Vital Signs (12 hours) Temp Pulse Resp Pulse Ox 04/25/20 08:00 95 04/25/20 07:21 96.9 F L 04/25/20 04:00 97.1 F L 04/25/20 00:52 97.8 F 04/25/20 00:49 79 24 H Weight Weight 256 lb 8 oz Most Recent Monitor Data Heart Rate from ECG 89 NIBP 115/62 NIBP BP-Mean 79 Respiration from ECG 23 SpO2 99 I&O: 04/24/20 04/25/20 04/26/20 06:59 06:59 06:59 Intake Total 240 Output Total 220 Balance 240 -220 Result Diagrams: 04/25/20 04:27 04/25/20 04:27 Hospitalist ROS - Medication Medications: Active Medications Generic Name Dose Route Start Last Admin Trade Name Freq PRN Reason Stop Dose Admin Acidophilus 1 tab 04/24/20 09:00 04/25/20 08:19 Lactinex Tablet PO 1 tab DAILY POPEYE Administration Amoxicillin/Clavulanate Potassium 875 mg 04/25/20 09:00 04/25/20 10:51 Amoxicillin/Potassium Clav 875 Mg Tab PO 05/05/20 09:01 875 mg Q12HR POPEYE Administration Aspirin 81 mg 04/24/20 09:00 04/25/20 08:19 Aspirin 81 Mg Enteric Coated Tablet PO 81 mg DAILY POPEYE Administration Calcium/Vitamin D 1 tab 04/25/20 09:00 04/25/20 08:19 Calcium Carbonate 600 Mg + Vit D Tab PO 1 tab BID POPEYE Administration Cholecalciferol 10,000 units 04/24/20 09:00 04/25/20 08:18 Cholecalciferol 1,000 Units (25 Mcg) Tab PO 10,000 units DAILY POPEYE Administration Cholestyramine Resin 4 gm 04/23/20 21:00 04/25/20 01:03 Cholestyramine/Aspartame 4 Gm Packet PO Not Given HS POPEYE Divalproex Sodium 500 mg 04/24/20 09:00 04/25/20 08:20 Divalproex Sodium Er 500 Mg Tablet PO 500 mg DAILY POPEYE Administration Enoxaparin Sodium 40 mg 04/24/20 21:00 04/25/20 01:03 Enoxaparin Sodium 40 Mg/0.4 Ml Syringe SC Not Given 2100 POPEYE Fluticasone Propionate 0 gm 04/24/20 09:00 04/25/20 08:20 Fluticasone Propionate Nasal [place] 16 Gm Bottle NASAL Not Given DAILY POPEYE Clindamycin Phosphate/Dextrose 50 mls @ 100 mls/hr 04/23/20 12:00 04/25/20 04:00 600 mg/ Device IVPB 50 mls 0400,1200,2000 POPEYE Administration Iron/Minerals/Multivitamins 1 tab 04/24/20 09:00 04/25/20 08:20 Multivitamin W/ Minerals 1 Tab PO 1 tab DAILY POPEYE Administration Pantoprazole Sodium 40 mg 04/24/20 09:00 04/25/20 08:19 Pantoprazole 40 Mg Tab PO 40 mg DAILY POPEYE Administration - Exam Neck: no JVD Heart: RRR, no murmur Respiratory - other findings: dull R base with rales/rhonchi Gastrointestinal: soft, non-distended, normal bowel sounds Extremities: no edema Hosp A/P (1) Empyema, right Code(s): J86.9 - PYOTHORAX WITHOUT FISTULA Status: Acute (2) Pneumonia Code(s): J18.9 - PNEUMONIA, UNSPECIFIED ORGANISM Status: Acute Qualifiers: Pneumonia type: due to Pseudomonas Laterality: right Lung location: lower lobe of lung Qualified Code(s): J15.1 - Pneumonia due to Pseudomonas (3) Acute respiratory failure with hypoxemia Code(s): J96.01 - ACUTE RESPIRATORY FAILURE WITH HYPOXIA Status: Acute (4) Hypertension Code(s): I10 - ESSENTIAL (PRIMARY) HYPERTENSION Status: Chronic Qualifiers: Hypertension type: essential hypertension Qualified Code(s): I10 - Essential (primary) hypertension - Plan on iv clindamycin, po augmentin chest tube on right selected home meds discuss with dietary supervisor
--- NOTE | 2020-04-25 14:37 | PQF ---
CLINICAL DOCUMENTATION CLARIFICATION FORM: Dear Dr. Bruce Date: 04/25/2020 Please exercise your independent, professional judgment in responding to the clarification form. Clinical indicators are provided on the bottom of this form for your review. Please check appropriate box(s): [ x] Sepsis due to Pneumonia with Empyema [ ] Severe Sepsis with associated organ dysfunction: [ ] Acute hypoxic respiratory failure [ ] Encephalopathy [ ] SIRS due to non-infectious process (please specify): [ ] With Acute Organ Dysfunction [ ] Without Acute Organ Dysfunction [ ] Localized Infection without Sepsis [ ] Other diagnosis [ ] Unable to determine In addition, please specify: Present on Admission (POA): [ x ] Yes [ ] No [ ] Unable to determine For continuity of documentation, please document condition throughout progress notes and discharge summary. Thank You. CLINICAL INDICATORS - SIGNS / SYMPTOMS / LABS / RESULTS AND LOCATION IN EMR *H&P 04/22 ([facility]): * Vital Signs: Blood pressure 145/54, temp 98.9 oral, heart rate 94, RR 20, O2 saturation 99% on 2L * Possible pulmonary abscess along with pneumonia and pleural effusion * Leukocytosis Initial white blood count was 20.8 Currently afebrile * Hypoxia with acute respiratory failure *LAB ([facility]): WBC Neutrophils % Band Neuts % 04/23 29.6 30 04/24 23.1 87.8 04/25 26.8 36 *Consultation 04/23 ([facility]): * She appears somewhat confused * Encephalopathy *PN 04/23 ([facility]): Sepsis *PN 04/24 ([facility]): Acute on Chronic respiratory failure due to pneumonia with right empyema- She is s/p decortication. RISK FACTORS / RESULTS AND LOCATION IN EMR *H&P 04/22 ([facility]): Possible pulmonary abscess along with pneumonia and pleural effusion TREATMENTS / RESULTS AND LOCATION IN EMR *H&P 04/22 ([facility]): Consult pulmonary and ID Continue IV antibiotics Request blood culture results from [facility] Recheck labs in a.m. 2 L nasal cannula *Operative Notes 04/24 ([facility]): Thoracentesis *Operative Notes 04/25 ([facility]): Thorascopy with total lung decortication, drainage of empyema *Microbiology 04/23 ([facility]): Source Pleural Fluid *LAB ([facility]): CBC Daily 04/23 - 04/25 Thank you, Anali CDS/Physical Therapist Technician Signature: Anali Anand RN, CDS Phone #: [phone] [email or web address] This is a permanent part of the Medical Record [employer] [facility]
[2020-04-26 04:47] LABS: Anion Gap 13 mmol/L (10-20); BUN (Urea Nitrogen) 43 mg/dL (9.8-20.1); Calc. Creatinine Clearance 101 mL/min (70-130); Carbon Dioxide 30 mmol/L (23-31); Chloride 97 mmol/L (98-107); Potassium 4.1 mmol/L (3.5-5.1); Sodium 136 mmol/L (136-145)
[2020-04-26 04:48] LABS: Calcium 10.2 mg/dL (7.8-10.44); Glucose 103 mg/dL (83-110)
[2020-04-26 04:55] LABS: Band 13 % (5-11); Eosinophils 3 % (0-10); Hemoglobin 12.8 g/dL (12.0-16.0); Lymphocytes 9 % (21-51); MDiff Complete? YES; Mean Corpuscular HGB CONC 31.7 g/dL (32.0-36.0); Mean Corpuscular Hemoglobin 31.2 pg (27.0-31.0); Mean Corpuscular Volume 98.6 fL (78.0-98.0); Mean Platelet Volume 8.4 fL (7.4-10.4); Monocytes 8 % (0-10); Neutrophil 67 % (42-75); Platelet Count 313 thou/uL (130-400); Platelet Morphology Comment Appears Adequate; RBC Distribution Width 12.8 % (11.5-14.5); RBC Morphology Normal; Red Blood Cell (RBC) Count 4.11 mill/uL (4.20-5.40)
[2020-04-26] MEDS: Clindamycin/D5W 600 MG in Premix Bag 1 BAG IVPB SCH ×3 (05:08→23:35)
--- NOTE | 2020-04-26 07:41 | PRG ---
DATE OF SERVICE: 04/26/2020 The patient is now postoperative day #2 from thoracoscopy and decortication. Her vital signs been stable. She has been afebrile. Her chest tube output has been less than 100 mL of serous fluid in the last 24 hours with no air leak. Her chest x-ray continues to look stable with some consolidation in the right lower lobe, but no obvious free fluid. Her chest tubes were removed today. Cultures remain free and she is being maintained on antibiotics, although her white count is starting to decrease today. Otherwise, she remains rather reluctant to move around or do much of anything other than lie there and sleep. She tells me that this is pretty much all she does at home as well. Disposition per the admitting service. Job ID: [id number]
--- NOTE | 2020-04-26 08:17 | RAD ---
Portable frontal chest radiograph: 04/26/2020 COMPARISON: 04/25/2020 HISTORY: Empyema FINDINGS: 2 stable lateral right-sided chest tubes. Stable dense opacity within the right base sugges ts a combination of pleural and parenchymal opacity. No pneumothorax. Left lung is clear. Heart and mediastinal contours are stable. IMPRESSION: No interval change.
[2020-04-26] MEDS: Cholecalciferol 1,000 UNITS (25 MCG) TAB PO SCH (09:55)
[2020-04-26] MEDS: Multivitamin W/ Minerals 1 TAB PO SCH (09:55)
[2020-04-26] MEDS: Calcium Carbonate 600 MG + Vit D TAB PO SCH ×2 (09:56→22:05)
[2020-04-26] MEDS: Amoxicillin/Potassium Clav 875 MG TAB PO SCH ×2 (09:56→22:05)
[2020-04-26] MEDS: Lactinex Tablet PO SCH (09:56)
[2020-04-26] MEDS: Aspirin 81 mg Enteric Coated Tablet PO SCH (09:57)
[2020-04-26] MEDS: Fluticasone Propionate Nasal Spray 16 gm Bottle NASAL SCH (10:00)
--- NOTE | 2020-04-26 11:54 | PDOC.HOSPP ---
- Subjective Encounter Date: 04/26/20 Encounter Time: 11:52 Subjective: afebrile, no sob - Objective Vital Signs & Weight: Vital Signs (12 hours) Temp Pulse Ox 04/26/20 11:16 97.0 F L 04/26/20 09:36 95 04/26/20 08:00 94 L 04/26/20 07:17 96.8 F L 04/26/20 04:33 93 L 04/26/20 03:12 97.7 F 04/26/20 00:00 97.6 F Weight Weight 256 lb 8 oz Most Recent Monitor Data Heart Rate from ECG 77 NIBP 132/64 NIBP BP-Mean 86 Respiration from ECG 28 SpO2 97 I&O: 04/25/20 04/26/20 04/27/20 06:59 06:59 06:59 Intake Total 934 Output Total 220 1310 Balance -220 -376 Result Diagrams: 04/26/20 04:03 04/26/20 04:03 Hospitalist ROS - Medication Medications: Active Medications Generic Name Dose Route Start Last Admin Trade Name Braydenq PRN Reason Stop Dose Admin Acidophilus 1 tab 04/24/20 09:00 04/26/20 09:56 Lactinex Tablet PO 1 tab DAILY POPEYE Administration Amoxicillin/Clavulanate Potassium 875 mg 04/25/20 09:00 04/26/20 09:56 Amoxicillin/Potassium Clav 875 Mg Tab PO 05/05/20 09:01 875 mg Q12HR POPEYE Administration Aspirin 81 mg 04/24/20 09:00 04/26/20 09:57 Aspirin 81 Mg Enteric Coated Tablet PO 81 mg DAILY POPEYE Administration Calcium/Vitamin D 1 tab 04/25/20 09:00 04/26/20 09:56 Calcium Carbonate 600 Mg + Vit D Tab PO 1 tab BID POPEYE Administration Cholecalciferol 10,000 units 04/24/20 09:00 04/26/20 09:55 Cholecalciferol 1,000 Units (25 Mcg) Tab PO 10,000 units DAILY POPEYE Administration Cholestyramine Resin 4 gm 04/23/20 21:00 04/25/20 21:14 Cholestyramine/Aspartame 4 Gm Packet PO 4 gm HS POPEYE Administration Divalproex Sodium 500 mg 04/24/20 09:00 04/26/20 09:57 Divalproex Sodium Er 500 Mg Tablet PO 500 mg DAILY POPEYE Administration Enoxaparin Sodium 40 mg 04/24/20 21:00 04/25/20 21:14 Enoxaparin Sodium 40 Mg/0.4 Ml Syringe SC 40 mg 2100 POPEYE Administration Fluticasone Propionate 0 gm 04/24/20 09:00 04/26/20 10:00 Fluticasone Propionate Nasal [place] 16 Gm Bottle NASAL Not Given DAILY POPEYE Clindamycin Phosphate/Dextrose 50 mls @ 100 mls/hr 04/23/20 12:00 04/26/20 05:08 600 mg/ Device IVPB 50 mls 0400,1200,2000 POPEYE Administration Iron/Minerals/Multivitamins 1 tab 04/24/20 09:00 04/26/20 09:55 Multivitamin W/ Minerals 1 Tab PO 1 tab DAILY POPEYE Administration Ketorolac Tromethamine 15 mg 04/24/20 14:26 04/26/20 09:50 Ketorolac Tromethamine 30 Mg/Ml Vial IVP 04/29/20 14:27 15 mg Q6H PRN Administration Pain Pantoprazole Sodium 40 mg 04/24/20 09:00 04/26/20 09:57 Pantoprazole 40 Mg Tab PO 40 mg DAILY POPEYE Administration - Exam General Appearance: awake alert Neck: no JVD Heart: RRR, no murmur Respiratory - other findings: dull , decreased BS R lower lobe. BS adequate in other ol[place] Gastrointestinal: soft, non-tender, normal bowel sounds Extremities: 1+ LE edema Hosp A/P (1) Empyema, right Code(s): J86.9 - PYOTHORAX WITHOUT FISTULA Status: Acute (2) Pneumonia Code(s): J18.9 - PNEUMONIA, UNSPECIFIED ORGANISM Status: Acute Qualifiers: Pneumonia type: due to Pseudomonas Laterality: right Lung location: lower lobe of lung Qualified Code(s): J15.1 - Pneumonia due to Pseudomonas (3) Acute respiratory failure with hypoxemia Code(s): J96.01 - ACUTE RESPIRATORY FAILURE WITH HYPOXIA Status: Acute (4) Hypertension Code(s): I10 - ESSENTIAL (PRIMARY) HYPERTENSION Status: Chronic Qualifiers: Hypertension type: essential hypertension Qualified Code(s): I10 - Essential (primary) hypertension - Plan on iv clindamycin, po augmentin chest tube removed move to [facility] home meds discuss with clerical assigner
[2020-04-26] MEDS: [UNRECOGNIZED DRUG - OTHER] PO SCH ×3 (14:02→15:03)
--- NOTE | 2020-04-26 17:03 | PRG ---
DATE OF SERVICE: 04/26/2020 SUBJECTIVE: Ms. Fitch had thoracoscopy with total lung decortication by Dr. Way on the . Procedure was reviewed. The patient had blunt dissection and sharp dissection down to rib cage. Chest was entered. The scope was inserted and loculations were broken. The upper lobe was fully mobilized from the chest wall and there was an area of suspected perforation with purulence found and debris were removed from the chest wall and 2 L of irrigation. Currently, the patient denies any headaches. No dyspnea. Mild chest pain. OBJECTIVE: LUNGS: Diminished breath sounds in the right base. HEART: S1, S2 regular rate. ABDOMEN: Soft, nontender. Chest tube drainage about 310 mL over the past 24 hours. She is voiding in the diaper and has been afebrile. LABORATORY DATA: White cell count down to 16,000, hemoglobin 12, platelets 313. Creatinine 0.91. Cultures pending. AFB with no acid-fast bacillus seen. The fluid had 3000 wbc's with total pH 7.37, LDH 505, protein 3.5. The patient is currently on clindamycin and was switched to Augmentin. ASSESSMENT AND DISCUSSION: Obesity, bipolar disorder, acute onset of respiratory symptoms, large pleural effusion, suppurative inflammatory process, right lung adjacent pleural effusion, most likely due to oral type of bacteria with microaerophilic streptococci, anaerobes. Pending culture results. I would advise continuation of IV therapy until there is further improvement of white cell count elevation and also until we have the results of the cultures. De-escalation to oral therapy can be carried out once those two issues are resolved and we have either negative cultures or an organism to target. The duration of therapy typically anywhere from 4 to 6 weeks. Job ID: [id number] [facility]
--- NOTE | 2020-04-26 18:33 | PRG ---
DATE OF SERVICE: 04/26/2020 SUBJECTIVE: Fernie Fitch was evaluated. OBJECTIVE: VITAL SIGNS: She is afebrile. Heart rate is 80, blood pressure 103/62. GENERAL: Chest tubes out. LUNGS: She has equal breath sounds. HEART: Regular rhythm. ABDOMEN: Soft. LABORATORY DATA: White count 16, hemoglobin 12.8, and platelets 313. Sodium 136, potassium 4.1, chloride 97, bicarb 30, BUN 43, and creatinine 0.9. IMPRESSION AND PLAN: Status post thoracoscopy with decortication. Cultures of her pleural fluid from the 28, not grown anything. She may be transferred out of the intermediate care unit today. The goal tomorrow should be to get her up in the chair. Job ID: [id number]
[2020-04-26] MEDS: Cholestyramine/Aspartame 4 gm Packet PO SCH (22:06)
[2020-04-26] MEDS: Enoxaparin Sodium 40 MG/0.4 ML SYRINGE SC SCH (22:06)
[2020-04-26 23:12] LABS: QuantiFERON-TB Gold Plus Indeterminate (Negative)
[2020-04-27] MEDS: Clindamycin/D5W 600 MG in Premix Bag 1 BAG IVPB SCH ×3 (07:12→20:06)
[2020-04-27 08:35] LABS: Band 15 % (5-11); Hemoglobin 13.1 g/dL (12.0-16.0); Lymphocytes 14 % (21-51); MDiff Complete? YES; Mean Corpuscular HGB CONC 32.1 g/dL (32.0-36.0); Mean Corpuscular Hemoglobin 31.7 pg (27.0-31.0); Mean Corpuscular Volume 98.8 fL (78.0-98.0); Mean Platelet Volume 8.5 fL (7.4-10.4); Monocytes 4 % (0-10); Neutrophil 67 % (42-75); Platelet Count 330 thou/uL (130-400); RBC Distribution Width 12.9 % (11.5-14.5); Red Blood Cell (RBC) Count 4.14 mill/uL (4.20-5.40); White Blood Cell (WBC) Count 12.1 thou/uL (4.8-10.8)
[2020-04-27] MEDS: Cholecalciferol 1,000 UNITS (25 MCG) TAB PO SCH (08:35)
[2020-04-27] MEDS: Fluticasone Propionate Nasal Spray 16 gm Bottle NASAL SCH (08:37)
[2020-04-27] MEDS: Amoxicillin/Potassium Clav 875 MG TAB PO SCH ×2 (08:37→20:08)
[2020-04-27] MEDS: Aspirin 81 mg Enteric Coated Tablet PO SCH (08:37)
[2020-04-27] MEDS: Calcium Carbonate 600 MG + Vit D TAB PO SCH ×2 (08:37→20:08)
[2020-04-27] MEDS: Multivitamin W/ Minerals 1 TAB PO SCH (08:37)
[2020-04-27] MEDS: Lactinex Tablet PO SCH (08:37)
[2020-04-27] MEDS: [UNRECOGNIZED DRUG - OTHER] PO SCH (08:38)
--- NOTE | 2020-04-27 09:36 | RAD ---
EXAM: Chest one view: HISTORY: Follow-up empyema COMPARISON: 04/26/2020 FINDINGS: The 2 previous right chest tubes have been removed. Heart size: Within normal limits. Lungs: Persistent pleural and parenchymal opacity changes in the right chest particularly the right m id and lower lung zone. No significant pneumothorax. IMPRESSION: Removal of the right chest tubes with persistent pleural and parenchymal opacity changes in the right chest without significant pneumothorax.
--- NOTE | 2020-04-27 11:48 | PDOC.HOSPP ---
- Subjective Encounter Date: 04/27/20 Encounter Time: 11:43 Subjective: just lying in bed. no real complaints, apparently has VERY sedentary lifestyle - Objective Vital Signs & Weight: Vital Signs (12 hours) Temp Pulse Resp BP BP Pulse Ox 04/27/20 08:49 92 L 04/27/20 08:01 98.4 F 88 20 117/71 90 L 04/27/20 08:00 92 L 04/27/20 03:46 98.4 F 91 20 125/72 93 L 04/27/20 02:25 94 L 04/27/20 00:33 120/80 04/27/20 00:25 98.8 F 88 20 94 L Weight Weight 256 lb 8 oz Most Recent Monitor Data Heart Rate from ECG 80 NIBP 103/62 NIBP BP-Mean 75 Respiration from ECG 31 SpO2 92 I&O: 04/26/20 04/27/20 04/28/20 06:59 06:59 06:59 Intake Total 934 670 Output Total 1310 640 Balance -376 30 Result Diagrams: 04/27/20 07:51 04/26/20 04:03 Hospitalist ROS - Medication Medications: Active Medications Generic Name Dose Route Start Last Admin Trade Name Freq PRN Reason Stop Dose Admin Acidophilus 1 tab 04/24/20 09:00 04/27/20 08:37 Lactinex Tablet PO 1 tab DAILY POPEYE Administration Amoxicillin/Clavulanate Potassium 875 mg 04/25/20 09:00 04/27/20 08:37 Amoxicillin/Potassium Clav 875 Mg Tab PO 05/05/20 09:01 875 mg Q12HR POPEYE Administration Aspirin 81 mg 04/24/20 09:00 04/27/20 08:37 Aspirin 81 Mg Enteric Coated Tablet PO 81 mg DAILY POPEYE Administration Calcium/Vitamin D 1 tab 04/25/20 09:00 04/27/20 08:37 Calcium Carbonate 600 Mg + Vit D Tab PO 1 tab BID POPEYE Administration Cholecalciferol 10,000 units 04/24/20 09:00 04/27/20 08:35 Cholecalciferol 1,000 Units (25 Mcg) Tab PO 10,000 units DAILY POPEYE Administration Cholestyramine Resin 4 gm 04/23/20 21:00 04/26/20 22:06 Cholestyramine/Aspartame 4 Gm Packet PO 4 gm HS POPEYE Administration Divalproex Sodium 500 mg 04/24/20 09:00 04/27/20 08:37 Divalproex Sodium Er 500 Mg Tablet PO 500 mg DAILY POPEYE Administration Enoxaparin Sodium 40 mg 04/24/20 21:00 04/26/20 22:06 Enoxaparin Sodium 40 Mg/0.4 Ml Syringe SC 40 mg 2100 POPEYE Administration Fluticasone Propionate 0 gm 04/24/20 09:00 04/27/20 08:37 Fluticasone Propionate Nasal [place] 16 Gm Bottle NASAL 1 spr DAILY POPEYE Administration Clindamycin Phosphate/Dextrose 50 mls @ 100 mls/hr 04/23/20 12:00 04/27/20 07:12 600 mg/ Device IVPB Not Given 0400,1200,2000 POPEYE Iron/Minerals/Multivitamins 1 tab 04/24/20 09:00 04/27/20 08:37 Multivitamin W/ Minerals 1 Tab PO 1 tab DAILY POPEYE Administration Ketorolac Tromethamine 15 mg 04/24/20 14:26 04/26/20 09:50 Ketorolac Tromethamine 30 Mg/Ml Vial IVP 04/29/20 14:27 15 mg Q6H PRN Administration Pain Pantoprazole Sodium 40 mg 04/24/20 09:00 04/26/20 09:57 Pantoprazole 40 Mg Tab PO 40 mg DAILY POPEYE Administration L-Mefol/A-Cyst/Meb12 0 each 04/27/20 09:00 04/27/20 08:38 /Algal Oil Tablet PO 1 each DAILY POPEYE Administration - Exam General Appearance: awake alert Neck: no JVD Heart: RRR, no murmur Respiratory - other findings: clear excpt for RLL. rales, dullness, egophony right base Gastrointestinal: soft, non-distended, normal bowel sounds Extremities: no edema Hosp A/P (1) Empyema, right Code(s): J86.9 - PYOTHORAX WITHOUT FISTULA Status: Acute (2) Pneumonia Code(s): J18.9 - PNEUMONIA, UNSPECIFIED ORGANISM Status: Acute Qualifiers: Pneumonia type: due to Pseudomonas Laterality: right Lung location: lower lobe of lung Qualified Code(s): J15.1 - Pneumonia due to Pseudomonas (3) Acute respiratory failure with hypoxemia Code(s): J96.01 - ACUTE RESPIRATORY FAILURE WITH HYPOXIA Status: Acute (4) Hypertension Code(s): I10 - ESSENTIAL (PRIMARY) HYPERTENSION Status: Chronic Qualifiers: Hypertension type: essential hypertension Qualified Code(s): I10 - Essential (primary) hypertension - Plan 1. PNA-on iv clindamycin, po augmentin 2.reap failure- cont O2 supplementation 3. HTN- cont HCTZ 4.Manic depressive disorder- cont depakote
--- NOTE | 2020-04-27 14:20 | PRG ---
DATE OF SERVICE: 04/27/2020 SUBJECTIVE: Fernie Fitch, status post decortication right chest. She is doing better. OBJECTIVE: VITAL SIGNS: Temperature 97, pulse 92, respiratory rate 14, saturations room air, blood pressure 136/82. GENERAL: She is severely deconditioned. CHEST: Decreased breath sounds CARDIAC: Normal S1, S2. No gallops. ABDOMEN: No masses. LABORATORY DATA: White count 12,000. IMPRESSION AND PLAN: Right-sided empyema; right lower lobe pneumonia, slowly improving. Continue clindamycin, amoxicillin. PT. Cultures so far negative. Job ID: [id number]
[2020-04-27] MEDS: Enoxaparin Sodium 40 MG/0.4 ML SYRINGE SC SCH (20:07)
[2020-04-27] MEDS: Cholestyramine/Aspartame 4 gm Packet PO SCH (20:08)
[2020-04-28] MEDS: Clindamycin/D5W 600 MG in Premix Bag 1 BAG IVPB SCH ×2 (04:25→12:50)
[2020-04-28 07:04] LABS: #Basophils 0.1 thou/uL (0.0-0.2); #Eosinphils 0.2 thou/uL (0.0-0.7); #Monocytes 2.1 thou/uL (0.11-0.59); #Neutrophils 13.9 thou/uL (1.40-6.50); %Basophils 0.4 % (0.0-1.0); %Eosinophils 0.9 % (0.0-10.0); %Lymphocytes 10.8 % (21.0-51.0); %Monocytes 11.6 % (0.0-10.0); %Neutrophils 76.3 % (42.0-75.0); Hemoglobin 13.2 g/dL (12.0-16.0); Mean Corpuscular HGB CONC 31.7 g/dL (32.0-36.0); Mean Corpuscular Hemoglobin 31.2 pg (27.0-31.0); Mean Corpuscular Volume 98.4 fL (78.0-98.0); Mean Platelet Volume 9.2 fL (7.4-10.4); Platelet Count 288 thou/uL (130-400); Red Blood Cell (RBC) Count 4.24 mill/uL (4.20-5.40); White Blood Cell (WBC) Count 18.2 thou/uL (4.8-10.8)
[2020-04-28] MEDS: Amoxicillin/Potassium Clav 875 MG TAB PO SCH ×2 (10:25→21:06)
[2020-04-28] MEDS: Lactinex Tablet PO SCH (10:25)
[2020-04-28] MEDS: Cholecalciferol 1,000 UNITS (25 MCG) TAB PO SCH (10:25)
[2020-04-28] MEDS: Aspirin 81 mg Enteric Coated Tablet PO SCH (10:26)
[2020-04-28] MEDS: Calcium Carbonate 600 MG + Vit D TAB PO SCH ×2 (10:26→21:06)
[2020-04-28] MEDS: Fluticasone Propionate Nasal Spray 16 gm Bottle NASAL SCH (10:27)
[2020-04-28] MEDS: Multivitamin W/ Minerals 1 TAB PO SCH (10:27)
[2020-04-28] MEDS: [UNRECOGNIZED DRUG - OTHER] PO SCH (10:27)
--- NOTE | 2020-04-28 13:21 | PRG ---
DATE OF SERVICE: SUBJECTIVE: Fernie Fitch is a 75-year-old female status post decortication, still remains encephalopathic. OBJECTIVE: VITAL SIGNS: Temperature 98, pulse 70, respirations 20, sats are 93% on 2 L, blood pressure 116/76. CHEST: No wheezing, no crackles. CARDIAC: Normal S1, S2. ABDOMEN: No masses. LABORATORY DATA: White count is down to 18,000. ASSESSMENT: Status post decortication, pneumonia. PLAN: I am going to discontinue the divalproex. She is still lethargic, discontinue clindamycin. Continue p.o. Augmentin. PT she needs to walk before she can be discharged home. We will follow. Job ID: [id number]
--- NOTE | 2020-04-28 14:50 | PDOC.HOSPP ---
- Subjective Encounter Date: 04/28/20 Encounter Time: 08:00 Subjective: Patient seen for follow-up regarding empyema. She denies chest pain or shortness of breath. - Objective Vital Signs & Weight: Vital Signs (12 hours) Temp Pulse Resp BP Pulse Ox 04/28/20 11:10 98.1 F 78 20 116/76 93 L 04/28/20 08:00 98.4 F 84 20 121/65 94 L 04/28/20 04:00 98 F 89 18 119/74 93 L Weight Weight 256 lb 8 oz Most Recent Monitor Data Heart Rate from ECG 80 NIBP 103/62 NIBP BP-Mean 75 Respiration from ECG 31 SpO2 92 I&O: 04/27/20 04/28/20 04/29/20 06:59 06:59 06:59 Intake Total 670 Output Total 640 400 Balance 30 -400 Result Diagrams: 04/28/20 06:16 04/26/20 04:03 Additional Labs: I reviewed patient's labs and MAR Hospitalist ROS - Medication Medications: Active Medications Generic Name Dose Route Start Last Admin Trade Name Kermit PRN Reason Stop Dose Admin Acidophilus 1 tab 04/24/20 09:00 04/28/20 10:25 Lactinex Tablet PO 1 tab DAILY POPEYE Administration Amoxicillin/Clavulanate Potassium 875 mg 04/25/20 09:00 04/28/20 10:25 Amoxicillin/Potassium Clav 875 Mg Tab PO 05/05/20 09:01 875 mg Q12HR POPEYE Administration Aspirin 81 mg 04/24/20 09:00 04/28/20 10:26 Aspirin 81 Mg Enteric Coated Tablet PO 81 mg DAILY POPEYE Administration Calcium/Vitamin D 1 tab 04/25/20 09:00 04/28/20 10:26 Calcium Carbonate 600 Mg + Vit D Tab PO 1 tab BID POPEYE Administration Cholecalciferol 10,000 units 04/24/20 09:00 04/28/20 10:25 Cholecalciferol 1,000 Units (25 Mcg) Tab PO 10,000 units DAILY POPEYE Administration Cholestyramine Resin 4 gm 04/23/20 21:00 04/27/20 20:08 Cholestyramine/Aspartame 4 Gm Packet PO 4 gm HS POPEYE Administration Enoxaparin Sodium 40 mg 04/24/20 21:00 04/27/20 20:07 Enoxaparin Sodium 40 Mg/0.4 Ml Syringe SC 40 mg 2100 POPEYE Administration Fluticasone Propionate 0 gm 04/24/20 09:00 04/28/20 10:27 Fluticasone Propionate Nasal [place] 16 Gm Bottle NASAL 1 spr DAILY POPEYE Administration Iron/Minerals/Multivitamins 1 tab 04/24/20 09:00 04/28/20 10:27 Multivitamin W/ Minerals 1 Tab PO 1 tab DAILY POPEYE Administration Ketorolac Tromethamine 15 mg 04/24/20 14:26 04/26/20 09:50 Ketorolac Tromethamine 30 Mg/Ml Vial IVP 04/29/20 14:27 15 mg Q6H PRN Administration Pain Pantoprazole Sodium 40 mg 04/24/20 09:00 04/28/20 10:27 Pantoprazole 40 Mg Tab PO 40 mg DAILY POPEYE Administration L-Mefol/A-Cyst/Meb12 0 each 04/27/20 09:00 04/28/20 10:27 /Algal Oil Tablet PO 1 each DAILY POPEYE Administration Hosp A/P - Plan Hosp A/P (1) Empyema, right Code(s): J86.9 - PYOTHORAX WITHOUT FISTULA Status: Acute (2) Pneumonia Code(s): J18.9 - PNEUMONIA, UNSPECIFIED ORGANISM Status: Acute Qualifiers: Pneumonia type: due to Pseudomonas Laterality: right Lung location: lower lobe of lung Qualified Code(s): J15.1 - Pneumonia due to Pseudomonas (3) Acute respiratory failure with hypoxemia Code(s): J96.01 - ACUTE RESPIRATORY FAILURE WITH HYPOXIA Status: Acute (4) Hypertension Code(s): I10 - ESSENTIAL (PRIMARY) HYPERTENSION Status: Chronic Qualifiers: Hypertension type: essential hypertension Qualified Code(s): I10 - E ssential (primary) hypertension - Plan Continue continue iv clindamycin, po augmentin Continue oxygen as needed Continue Depakote for manic depressive disorder
[2020-04-28] MEDS: Enoxaparin Sodium 40 MG/0.4 ML SYRINGE SC SCH (21:06)
[2020-04-28] MEDS: Cholestyramine/Aspartame 4 gm Packet PO SCH (21:06)
[2020-04-29 06:17] LABS: #Basophils 0.1 thou/uL (0.0-0.2); #Eosinphils 1.1 thou/uL (0.0-0.7); #Lymphocytes 2.3 thou/uL (1.20-3.40); #Monocytes 1.7 thou/uL (0.11-0.59); #Neutrophils 12.1 thou/uL (1.40-6.50); %Basophils 0.5 % (0.0-1.0); %Eosinophils 6.3 % (0.0-10.0); %Lymphocytes 13.1 % (21.0-51.0); %Monocytes 9.9 % (0.0-10.0); %Neutrophils 70.3 % (42.0-75.0); Mean Corpuscular HGB CONC 31.8 g/dL (32.0-36.0); Mean Corpuscular Hemoglobin 31.6 pg (27.0-31.0); Mean Corpuscular Volume 99.4 fL (78.0-98.0); Mean Platelet Volume 8.7 fL (7.4-10.4); Platelet Count 370 thou/uL (130-400); Red Blood Cell (RBC) Count 4.11 mill/uL (4.20-5.40); White Blood Cell (WBC) Count 17.2 thou/uL (4.8-10.8)
[2020-04-29] MEDS: Cholecalciferol 1,000 UNITS (25 MCG) TAB PO SCH (08:15)
[2020-04-29] MEDS: Lactinex Tablet PO SCH (08:16)
[2020-04-29] MEDS: Aspirin 81 mg Enteric Coated Tablet PO SCH (08:16)
[2020-04-29] MEDS: Multivitamin W/ Minerals 1 TAB PO SCH (08:16)
[2020-04-29] MEDS: Amoxicillin/Potassium Clav 875 MG TAB PO SCH ×2 (08:16→21:43)
[2020-04-29] MEDS: Fluticasone Propionate Nasal Spray 16 gm Bottle NASAL SCH (08:17)
[2020-04-29] MEDS: [UNRECOGNIZED DRUG - OTHER] PO SCH (08:17)
--- NOTE | 2020-04-29 12:01 | PRG ---
DATE OF SERVICE: 04/29/2020 OBJECTIVE: VITAL SIGNS: Temperature 97, pulse 70, respirations 20, sats are 90% on 2 L, blood pressure 140/73. CHEST: No wheezing. No crackles. CARDIAC: Normal S1 and S2. No gallops. ABDOMEN: No masses. LABORATORY DATA: White count 17,000. ASSESSMENT AND PLAN: Status post decortication, slowly resolving; severe deconditioning; bipolar. She is ready to be discharged to the rehab. Continue antibiotics as prescribed. Minimize any kind of sedation. Job ID: [id number]
[2020-04-29] MEDS: Calcium Carbonate 600 MG + Vit D TAB PO SCH ×2 (12:20→21:43)
--- NOTE | 2020-04-29 15:40 | PDOC.HOSPP ---
- Subjective Encounter Date: 04/29/20 Encounter Time: 13:00 Subjective: Patient seen for follow-up regarding empyema. Denies fevers or chills. - Objective Vital Signs & Weight: Vital Signs (12 hours) Temp Pulse Resp BP BP Pulse Ox 04/29/20 08:16 95 04/29/20 07:45 97.4 F L 79 20 148/73 H 91 L 04/29/20 04:00 97.8 F 80 20 150/79 H 94 L Weight Weight 256 lb 8 oz Most Recent Monitor Data Heart Rate from ECG 80 NIBP 103/62 NIBP BP-Mean 75 Respiration from ECG 31 SpO2 92 I&O: 04/28/20 04/29/20 04/30/20 06:59 06:59 06:59 Intake Total 350 Output Total 400 300 Balance -400 50 Result Diagrams: 04/29/20 05:26 04/26/20 04:03 Additional Labs: I reviewed patient's labs and MAR Hospitalist ROS - Review of Systems Respiratory: denies: cough, shortness of breath, SOB with excertion, pleuritic pain, wheezing Gastrointestinal: denies: nausea, vomiting, abdominal pain, diarrhea, constipat ion, melena, hematochezia - Medication Medications: Active Medications Generic Name Dose Route Start Last Admin Trade Name Freq PRN Reason Stop Dose Admin Acidophilus 1 tab 04/24/20 09:00 04/29/20 08:16 Lactinex Tablet PO 1 tab DAILY POPEYE Administration Amoxicillin/Clavulanate Potassium 875 mg 04/25/20 09:00 04/29/20 08:16 Amoxicillin/Potassium Clav 875 Mg Tab PO 05/05/20 09:01 875 mg Q12HR POPEYE Administration Aspirin 81 mg 04/24/20 09:00 04/29/20 08:16 Aspirin 81 Mg Enteric Coated Tablet PO 81 mg DAILY POPEYE Administration Calcium/Vitamin D 1 tab 04/25/20 09:00 04/29/20 12:20 Calcium Carbonate 600 Mg + Vit D Tab PO 1 tab BID POPEYE Administration Cholecalciferol 10,000 units 04/24/20 09:00 04/29/20 08:15 Cholecalciferol 1,000 Units (25 Mcg) Tab PO 10,000 units DAILY POPEYE Administration Cholestyramine Resin 4 gm 04/23/20 21:00 04/28/20 21:06 Cholestyramine/Aspartame 4 Gm Packet PO 4 gm HS POPEYE Administration Enoxaparin Sodium 40 mg 04/24/20 21:00 04/28/20 21:06 Enoxaparin Sodium 40 Mg/0.4 Ml Syringe SC 40 mg 2100 POPEYE Administration Fluticasone Propionate 0 gm 04/24/20 09:00 04/29/20 08:17 Fluticasone Propionate Nasal [place] 16 Gm Bottle NASAL 1 spr DAILY POPEYE Administration Iron/Minerals/Multivitamins 1 tab 04/24/20 09:00 04/29/20 08:16 Multivitamin W/ Minerals 1 Tab PO 1 tab DAILY POPEYE Administration Pantoprazole Sodium 40 mg 04/24/20 09:00 04/29/20 08:16 Pantoprazole 40 Mg Tab PO 40 mg DAILY POPEYE Administration L-Mefol/A-Cyst/Meb12 0 each 04/27/20 09:00 04/29/20 08:17 /Algal Oil Tablet PO 1 each DAILY POPEYE Administration - Exam General Appearance: awake alert Eye: anicteric sclera ENT: moist mucosa Neck: supple Heart: RRR Respiratory: CTAB Gastrointestinal: soft, non-tender Skin: no rashes Psychiatric: normal affect Hosp A/P - Plan Hosp A/P (1) Empyema, right Code(s): J86.9 - PYOTHORAX WITHOUT FISTULA Status: Acute (2) Pneumonia Code(s): J18.9 - PNEUMONIA, UNSPECIFIED ORGANISM Status: Acute Qualifiers: Pneumonia type: due to Pseudomonas Laterality: right Lung location: lower lobe of lung Qualified Code(s): J15.1 - Pneumonia due to Pseudomonas (3) Acute respiratory failure with hypoxemia Code(s): J96.01 - ACUTE RESPIRATORY FAILURE WITH HYPOXIA Status: Acute (4) Hypertension Code(s): I10 - ESSENTIAL (PRIMARY) HYPERTENSION Status: Chronic Qualifiers: Hypertension type: essential hypertension Qualified Code(s): I10 - Essential (primary) hypertension - Plan Patient is on iv clindamycin, po augmentin Continue oxygen as needed Patient is on Depakote for manic depressive disorder Monitor vital signs and titrate antihypertensives as needed.
[2020-04-29] MEDS: Enoxaparin Sodium 40 MG/0.4 ML SYRINGE SC SCH (21:39)
[2020-04-29] MEDS: Cholestyramine/Aspartame 4 gm Packet PO SCH (21:43)
[2020-04-30] MEDS: Multivitamin W/ Minerals 1 TAB PO SCH (08:52)
[2020-04-30] MEDS: Amoxicillin/Potassium Clav 875 MG TAB PO SCH ×2 (08:52→20:53)
[2020-04-30] MEDS: Calcium Carbonate 600 MG + Vit D TAB PO SCH ×2 (08:52→20:53)
[2020-04-30] MEDS: Cholecalciferol 1,000 UNITS (25 MCG) TAB PO SCH (08:52)
[2020-04-30] MEDS: Aspirin 81 mg Enteric Coated Tablet PO SCH (08:52)
[2020-04-30] MEDS: Fluticasone Propionate Nasal Spray 16 gm Bottle NASAL SCH (08:53)
[2020-04-30] MEDS: [UNRECOGNIZED DRUG - OTHER] PO SCH (08:56)
[2020-04-30] MEDS: Lactinex Tablet PO SCH (08:56)
--- NOTE | 2020-04-30 09:37 | PDOC.HOSPP ---
- Subjective Encounter Date: 04/30/20 Encounter Time: 12:00 Subjective: Patient without complaints. Still very weak. Voice weak as well, but can talk a bit after wetting her throat. - Objective Vital Signs & Weight: Vital Signs (12 hours) Temp Pulse Resp BP Pulse Ox 04/30/20 08:12 97.6 F 84 18 135/90 96 04/30/20 04:00 97.6 F 74 20 104/57 L 97 04/30/20 00:00 98.2 F 79 20 119/54 L 100 Weight Weight 256 lb 8 oz Most Recent Monitor Data Heart Rate from ECG 80 NIBP 103/62 NIBP BP-Mean 75 Respiration from ECG 31 SpO2 92 I&O: 04/29/20 04/30/20 05/01/20 06:59 06:59 06:59 Intake Total 350 100 Output Total 300 Balance 50 100 Result Diagrams: 04/29/20 05:26 04/26/20 04:03 Hospitalist ROS - Review of Systems Constitutional: reports: weakness. denies: fever, chills Respiratory: denies: cough, shortness of breath Cardiovascular: denies: chest pain, palpitations Gastrointestinal: denies: nausea, vomiting - Medication Medications: Active Medications Generic Name Dose Route Start Last Admin Trade Name Freq PRN Reason Stop Dose Admin Acidophilus 1 tab 04/24/20 09:00 04/30/20 08:56 Lactinex Tablet PO 1 tab DAILY POPEYE Administration Amoxicillin/Clavulanate Potassium 875 mg 04/25/20 09:00 04/30/20 08:52 Amoxicillin/Potassium Clav 875 Mg Tab PO 05/05/20 09:01 875 mg Q12HR POPEYE Administration Aspirin 81 mg 04/24/20 09:00 04/30/20 08:52 Aspirin 81 Mg Enteric Coated Tablet PO 81 mg DAILY POPEYE Administration Calcium/Vitamin D 1 tab 04/25/20 09:00 04/30/20 08:52 Calcium Carbonate 600 Mg + Vit D Tab PO 1 tab BID POPEYE Administration Cholecalciferol 10,000 units 04/24/20 09:00 04/30/20 08:52 Cholecalciferol 1,000 Units (25 Mcg) Tab PO 10,000 units DAILY POPEYE Administration Cholestyramine Resin 4 gm 04/23/20 21:00 04/29/20 21:43 Cholestyramine/Aspartame 4 Gm Packet PO Not Given HS POPEYE Enoxaparin Sodium 40 mg 04/24/20 21:00 04/29/20 21:39 Enoxaparin Sodium 40 Mg/0.4 Ml Syringe SC 40 mg 2100 POPEYE Administration Fluticasone Propionate 0 gm 04/24/20 09:00 04/30/20 08:53 Fluticasone Propionate Nasal [place] 16 Gm Bottle NASAL Not Given DAILY POPEYE Iron/Minerals/Multivitamins 1 tab 04/24/20 09:00 04/30/20 08:52 Multivitamin W/ Minerals 1 Tab PO 1 tab DAILY POPEYE Administration Pantoprazole Sodium 40 mg 04/24/20 09:00 04/30/20 08:52 Pantoprazole 40 Mg Tab PO 40 mg DAILY POPEYE Administration L-Mefol/A-Cyst/Meb12 0 each 04/27/20 09:00 04/30/20 08:56 /Algal Oil Tablet PO 1 each DAILY POPEYE Administration - Exam General Appearance: NAD, awake alert ENT: moist mucosa Heart: RRR, no murmur, no gallops, no rubs Respiratory: CTAB, no wheezes, no rales, no ronchi Gastrointestinal: soft, non-tender, non-distended, normal bowel sounds Extremities: no edema Psychiatric: normal affect, normal behavior Hosp A/P - Plan (1) Empyema, right Code(s): J86.9 - PYOTHORAX WITHOUT FISTULA Status: Acute (2) Pneumonia Code(s): J18.9 - PNEUMONIA, UNSPECIFIED ORGANISM Status: Acute Qualifiers: Pneumonia type: due to Pseudomonas Laterality: right Lung location: lower lobe of lung Qualified Code(s): J15.1 - Pneumonia due to Pseudomonas (3) Acute respiratory failure with hypoxemia Code(s): J96.01 - ACUTE RESPIRATORY FAILURE WITH HYPOXIA Status: Acute (4) Hypertension Code(s): I10 - ESSENTIAL (PRIMARY) HYPERTENSION Status: Chronic Qualifiers: Hypertension type: essential hypertension Qualified Code(s): I10 - Essential (primary) hypertension - Plan Patient is on po augmentin only now. Cleared by pulmonology for discharge. Continue oxygen as needed Patient is on Depakote for manic depressive disorder Monitor vital signs and titrate antihypertensives as needed. Stable for placement in rehab vs SNF. Will consult case management. Patient is from [place], but may need rehab stay here until strong enough to travel back with her .
--- NOTE | 2020-04-30 11:42 | PRG ---
DATE OF SERVICE: 04/30/2020 SUBJECTIVE: A 75-year-old female is more awake, responsive this morning. OBJECTIVE: VITAL SIGNS: Temperature is , respiratory rate 18, saturations on 1 L, blood pressure 135/90. CHEST: Decreased breath sounds. No wheezing. CARDIAC: Normal S1, S2. ABDOMEN: No masses. IMPRESSION: Status post decortication, bipolar, encephalopathy, slowly improving. The patient's wants the patient to be in the rehab. I agree to continue PT, supportive care. They are from [place]. Job ID: [id number]
[2020-04-30] MEDS: Cholestyramine/Aspartame 4 gm Packet PO SCH (20:53)
[2020-04-30] MEDS: Enoxaparin Sodium 40 MG/0.4 ML SYRINGE SC SCH (20:53)
[2020-05-01] MEDS: Amoxicillin/Potassium Clav 875 MG TAB PO SCH (08:46)
[2020-05-01] MEDS: Calcium Carbonate 600 MG + Vit D TAB PO SCH ×2 (08:46→21:11)
[2020-05-01] MEDS: Multivitamin W/ Minerals 1 TAB PO SCH (08:46)
[2020-05-01] MEDS: Aspirin 81 mg Enteric Coated Tablet PO SCH (08:46)
[2020-05-01] MEDS: Lactinex Tablet PO SCH (08:46)
[2020-05-01] MEDS: [UNRECOGNIZED DRUG - OTHER] PO SCH (08:47)
[2020-05-01] MEDS: Fluticasone Propionate Nasal Spray 16 gm Bottle NASAL SCH (08:47)
--- NOTE | 2020-05-01 13:07 | PRG ---
DATE OF SERVICE: 05/01/2020 OBJECTIVE: VITAL SIGNS: Her sats on 2 L are 97%, I turned the oxygen off. Temperature 98, pulse 78, respirations 18, blood pressure 121/77. GENERAL: More alert, responsive. CHEST: No wheezing. No crackles. CARDIAC: Normal S1, S2. No gallop. ABDOMEN: No masses. IMPRESSION: 1. Morbid obesity. 2. Bipolar. 3. Status post decortication. PLAN: Placement, aggressive PT. Job ID: [id number]
--- NOTE | 2020-05-01 13:45 | PRG ---
DATE OF SERVICE: 05/01/2020 SUBJECTIVE: Ms. Fitch is eating lunch. She is awake and alert. She had a smile on her face, so she is overall looking better than when I last saw her. She has no chest pain or shortness of breath. She is voiding in the diaper. Has not had a bowel movement yet. OBJECTIVE: VITAL SIGNS: Temperature has been normal, T-max 98, she is saturating 96 on 2 L, heart rate 78, respiratory rate 18, and blood pressure normal. LUNGS: Fairly clear breath sounds. HEART: S1 and S2. Regular rate. ABDOMEN: Soft. No bladder distention. EXTREMITIES: Moves all extremities. She is diffusely weak. She is awake, establishes eye contact, follows commands. She knows she is in the hospital, could not tell me the date. LABORATORY DATA: QuantiFERON was indeterminate. White cell count was down to 12.1 and now is up to 17.2, hemoglobin 13, and platelets 370 with 70% neutrophils. Creatinine 0.91. The cultures from the pleural fluid are negative, final result. The acid-fast workup is still pending. The direct smear was negative. ASSESSMENT AND DISCUSSION: 1. Obesity. 2. Bipolar disorder. 3. Acute onset of respiratory symptoms with large pleural effusions with suppurative inflammatory process in the right lung status post decortication. The most likely scenario is empyema associated with oral type of bacteria including microaerophilic, streptococci, and anaerobes. Typically, the cultures end up being negative in those situations. The possibility of tuberculosis is considered less. I would advise converting back to the IV treatments, probably which can be treated with a combination of Rocephin and Flagyl or IV Zosyn or meropenem or ertapenem since we do not have the identification of the pathogen and we may be reaching subtherapeutic concentrations with oral amoxicillin and clavulanic acid. In that regard, she probably will need a PICC line placement and treatment with IV medication for a few weeks. Job ID: [id number]
[2020-05-01] MEDS: Cholecalciferol 1,000 UNITS (25 MCG) TAB PO SCH (15:24)
[2020-05-01] MEDS ORDERED: MEROPENEM 1 GM/50 ML 1 GM in Sodium Chloride 0.9% 100 ML IVPB SCH (16:00)
--- NOTE | 2020-05-01 18:18 | PDOC.HOSPP ---
- Subjective Encounter Date: 05/01/20 Encounter Time: 09:30 Subjective: Patient seen for follow-up regarding empyema. She denies chest pain or shortness of breath. - Objective Vital Signs & Weight: Vital Signs (12 hours) Temp Pulse Resp BP Pulse Ox Pulse Ox 05/01/20 09:25 98 05/01/20 08:00 96 05/01/20 07:42 98.0 F 78 18 121/77 96 Weight Weight 256 lb 8 oz Most Recent Monitor Data Heart Rate from ECG 80 NIBP 103/62 NIBP BP-Mean 75 Respiration from ECG 31 SpO2 92 I&O: 04/30/20 05/01/20 05/02/20 06:59 06:59 06:59 Intake Total 100 440 Output Total 750 Balance 100 -310 Result Diagrams: 04/29/20 05:26 04/26/20 04:03 Additional Labs: Labs and MAR reviewed by vt Hospitalist ROS - Review of Systems Cardiovascular: denies: chest pain, palpitations, orthopnea, paroxysmal noc. dyspnea, edema, light headedness Gastrointestinal: denies: nausea, vomiting, abdominal pain, diarrhea, c onstipation, melena, hematochezia - Medication Medications: Active Medications Generic Name Dose Route Start Last Admin Trade Name Freq PRN Reason Stop Dose Admin Acetaminophen 650 mg 04/23/20 02:35 04/30/20 16:05 Acetaminophen 325 Mg Tab PO 650 mg Q4H PRN Administration Headache/Fever/Mild Pain (1-3) Acidophilus 1 tab 04/24/20 09:00 05/01/20 08:46 Lactinex Tablet PO 1 tab DAILY POPEYE Administration Aspirin 81 mg 04/24/20 09:00 05/01/20 08:46 Aspirin 81 Mg Enteric Coated Tablet PO 81 mg DAILY POPEYE Administration Calcium/Vitamin D 1 tab 04/25/20 09:00 05/01/20 08:46 Calcium Carbonate 600 Mg + Vit D Tab PO 1 tab BID POPEYE Administration Cholecalciferol 10,000 units 04/24/20 09:00 05/01/20 15:24 Cholecalciferol 1,000 Units (25 Mcg) Tab PO Not Given DAILY POPEYE Cholestyramine Resin 4 gm 04/23/20 21:00 04/30/20 20:53 Cholestyramine/Aspartame 4 Gm Packet PO 4 gm HS POPEYE Administration Enoxaparin Sodium 40 mg 04/24/20 21:00 04/30/20 20:53 Enoxaparin Sodium 40 Mg/0.4 Ml Syringe SC 40 mg 2100 POPEYE Administration Fluticasone Propionate 0 gm 04/24/20 09:00 05/01/20 08:47 Fluticasone Propionate Nasal [place] 16 Gm Bottle NASAL 1 spr DAILY POPEYE Administration Meropenem 1 gm/ Sodium 150 mls @ 300 mls/hr 05/01/20 16:00 05/01/20 17:32 Chloride IVPB 150 mls 0800,1600,2359 POPEYE Administration Iron/Minerals/Multivitamins 1 tab 04/24/20 09:00 05/01/20 08:46 Multivitamin W/ Minerals 1 Tab PO 1 tab DAILY POPEYE Administration Pantoprazole Sodium 40 mg 04/24/20 09:00 05/01/20 08:47 Pantoprazole 40 Mg Tab PO 40 mg DAILY POPEYE Administration L-Mefol/A-Cyst/Meb12 0 each 04/27/20 09:00 05/01/20 08:47 /Algal Oil Tablet PO 1 each DAILY POPEYE Administration - Exam General - other findings: Morbid obesity ENT: no oropharyngeal lesions Neck: supple Heart: RRR Respiratory: CTAB Gastrointestinal: soft, non-tender Skin: no rashes Psychiatric: normal affect Hosp A/P - Plan Hosp A/P (1) Empyema, right Code(s): J86.9 - PYOTHORAX WITHOUT FISTULA Status: Acute (2) Pneumonia Code(s): J18.9 - PNEUMONIA, UNSPECIFIED ORGANISM Status: Acute Qualifiers: Pneumonia type: due to Pseudomonas Laterality: right Lung location: lower lobe of lung Qualified Code(s): J15.1 - Pneumonia due to Pseudomonas (3) Acute respiratory failure with hypoxemia Code(s): J96.01 - ACUTE RESPIRATORY FAILURE WITH HYPOXIA Status: Acute (4) Hypertension Code(s): I10 - ESSENTIAL (PRIMARY) HYPERTENSION Status: Chronic Qualifiers: Hypertension type: essential hypertension Qualified Code(s): I10 - Essential (primary) hypertension - Plan Discontinue Augmentin, start IV meropenem. Continue Depakote. Continue oxygen as needed PICC line. For inpatient rehab.
[2020-05-01] MEDS ORDERED: cefTRIAXone\\ROCEPHIN 1 GM in Sodium Chloride 0.9% 100 ML IVPB SCH (20:00)
[2020-05-01] MEDS: Cholestyramine/Aspartame 4 gm Packet PO SCH (21:10)
[2020-05-01] MEDS: Enoxaparin Sodium 40 MG/0.4 ML SYRINGE SC SCH (21:11)
[2020-05-01] MEDS: metroNIDAZOLE 500 MG in Premix Bag 1 BAG IVPB SCH (21:11)
[2020-05-02] MEDS: metroNIDAZOLE 500 MG in Premix Bag 1 BAG IVPB SCH ×2 (05:07→14:33)
[2020-05-02 08:30] VITALS: BP 103/57; TEMP 98
[2020-05-02] MEDS: Aspirin 81 mg Enteric Coated Tablet PO SCH (09:45)
[2020-05-02] MEDS: Lactinex Tablet PO SCH (09:45)
[2020-05-02] MEDS: Calcium Carbonate 600 MG + Vit D TAB PO SCH (09:46)
[2020-05-02] MEDS: Multivitamin W/ Minerals 1 TAB PO SCH (09:46)
[2020-05-02] MEDS: Cholecalciferol 1,000 UNITS (25 MCG) TAB PO SCH (09:46)
[2020-05-02] MEDS: Fluticasone Propionate Nasal Spray 16 gm Bottle NASAL SCH (10:06)
[2020-05-02] MEDS: [UNRECOGNIZED DRUG - OTHER] PO SCH (10:06)
--- NOTE | 2020-05-02 14:20 | PDOC.DS.DS ---
Provider - Provider Date of Admission: 04/22/20 21:40 Date of Discharge: 05/02/20 Admitting Provider: Carlos Gomez Consultations: Infectious Disease (Dr. Fong), Pulmonary (Dr. Joseph), Other (CV surgery: Dr. Way) Primary Care Physician: Unknown Course - Hospital Course Hospital Course: Discharge diagnosis: 1. Empyema 2. Pneumonia 3. Acute on chronic respiratory failure 4. Parapneumonic effusion 5. Morbid obesity Hospital course: Patient is a pleasant 75-year-old lady who was admitted to the hospital on 2019 for possible pulmonary abscess along with pneumonia and pleural effusion and acute hypoxic respiratory failure. She was started on IV antibiotics. She was seen by infectious diseases, pulmonary and CV surgery services. On April 24 she underwent thoracentesis. On April 25 she underwent thoracoscopy with total lung decortication and drainage of empyema. Pleural fluid culture did not show any growth. Final blood culture did not show any growth. Patient was also physically deconditioned. She was seen by therapy services and inpatient rehab was recommended. She is being discharged to inpatient rehab. In terms of empyema, infectious disease service recommended 30 more days of intravenous antibiotics in the form of ceftriaxone and metronidazole. She is receiving a PICC line prior to discharge. She has been advised to have her weekly CBC, CMP and CRP checked. Many thanks for allowing me to participate in your patient's care. Please feel free to contact me with any questions or concerns. Discharge destination: Inpatient rehab Total amount of time spent coordinating this discharge: 32 minutes Resuscitation Status: 04/23/20 02:35 Resuscitation Status Routine Co-Sign Provider: Resuscitation Status: FULL: Full Resuscitation Discussed with: pt - Labs Lab Results: 04/29/20 05:26 04/26/20 04:03 Microbiology - Entire Visit 04/23/20 13:00 Pleural fluid Body Fluid Culture - Final 04/23/20 13:00 Pleural fluid Direct Acid Fast Bacilli Smear - Final 04/23/20 13:00 Pleural fluid Acid Fast Bacilli Smear - Final 04/23/20 13:00 Pleural fluid Acid Fast Bacilli Culture - Preliminary Specimen has been received and culture in progress. No Growth to date. - Physical Exam Vitals: Vital Signs (12 hours) Temp Pulse Resp BP Pulse Ox 05/02/20 08:00 98.0 F 79 20 103/57 L 94 L Weight Weight 256 lb 8 oz Most Recent Monitor Data Heart Rate from ECG 80 NIBP 103/62 NIBP BP-Mean 75 Respiration from ECG 31 SpO2 92 Physical Exam: The patient was seen and examined on the day of discharge. Patient denies chest pain or shortness of breath. Vital signs are stable. S1 and S2 are heard. Lungs are clear to auscultation bilaterally. Plan - Discharge Medications Prescriptions: metroNIDAZOLE [Metronidazole] 500 mg PO TID #90 tab Home Medications: Medication Instructions Recorded Confirmed Type Aspirin [Ecotrin Low Strength] 81 mg PO DAILY 04/22/20 04/22/20 History Calcium Citrate/Vitamin D3 2 tablet PO BID 04/22/20 04/22/20 History [Citracal Regular 250 mg + D] Carboxymethylcellulose Sodium 1 - 2 drop EA EYE QID 04/22/20 04/22/20 History [Refresh Celluvisc] Cholecalciferol (Vitamin D3) 10,000 unit PO DAILY 04/22/20 04/22/20 History [Vitamin D3] Cholestyramine/Aspartame 4 gm PO HS 04/22/20 04/22/20 History [Cholestyramine Light Packet] Divalproex Sodium ER [Depakote ER] 250 mg PO HS 04/22/20 04/22/20 History Divalproex Sodium [Depakote ER] 500 mg PO DAILY 04/22/20 04/22/20 History Fluticasone Propionate [Flonase 1 spray EA NARE DAILY 04/22/20 04/22/20 History Allergy Relief] Hydrochlorothiazide 12.5 mg PO DAILY 04/22/20 04/22/20 History Lactobacillus Combination No.4 1 capsule PO DAILY 04/22/20 04/22/20 History [Probiotic] Loratadine/Pseudoephedrine 1 tab PO DAILY 04/22/20 04/22/20 History [Claritin-D 24 Hour] Loteprednol Etabonate [Lotemax 1 - 2 drop EA EYE QID PRN 04/22/20 04/22/20 History 0.5% Ophth Suspension] Multivit-Min/Iron/Folic Acid/K 1 each PO DAILY 04/22/20 04/22/20 History [Adults Multivitamin Caplet] Omeprazole 20 mg PO DAILY 04/22/20 04/22/20 History l-Mefol/A-Cyst/Meb12/Algal Oil 1 tablet PO DAILY 04/22/20 04/22/20 History [Cerefolin NAC] cefTRIAXone\ROCEPHIN [Rocephin] 1 gm IVPB 2000 #30 vial 05/02/20 Rx metroNIDAZOLE [Metronidazole] 500 mg PO TID #90 tab 05/02/20 Rx traMADol HCl [Ultram] 50 mg PO Q6H PRN tab 05/02/20 Rx Allergies: chlorpheniramine [From Deconamine] Allergy (Verified 04/22/20 22:29) pseudoephedrine [From Deconamine] Allergy (Verified 04/22/20 22:29) Sulfa (Sulfonamide Antibiotics) Allergy (Verified 04/22/20 22:29) ziprasidone [From Geodon] Allergy (Verified 04/22/20 22:29) - Discharge Instructions Discharge Instructions:: Have your CBC, CMP and C-reactive protein checked weekly while on IV ceftriaxone. - Follow up Plan Referrals: Carlo Fong MD [Active] - 14 Days ( DIRECTED ) Unknown,Unknown [Primary Care Provider] - 7 Days Disposition: REHABILITATION INPATIENT Quality - Care Measures CORE MEASURES:: N/A
--- NOTE | 2020-05-02 15:33 | SPC ---
Left upper extremity PICC placement sonographic guided HISTORY: Pneumonia. FINDINGS: After explaining the procedure and answering all questions, the left upper extremity was pr epped and draped in usual sterile fashion. Sterile technique, buffered local anesthesia, sonographic guidance, and a 22-gauge needle were used t o carefully access the left brachial vein. Standard technique was used to place the tip of a 5 [place] single lumen PICC so that its tip lies at the level of the superior vena cava. Catheter was flushed and secured externally. Patient tolerated the procedure well and was returned in unchanged condition. Fluoroscopy time 0 seconds. IMPRESSION : Left upper extremity PICC is ready for use.
== END 2020-05-02 19:32 | DRG 853 ==
LOC: 2NO 21:40 → 2SE 04-23 04:08 → 2NO 04-23 04:09 → IMCU/EMU 04-24 21:00 → T4-B 04-26 20:19
PROVIDERS: ADMIT Internal Medicine; ATTEND Internal Medicine
PROC: 0W9930Z Drainage of Right Pleural Cavity with Drainage Device, Percutaneous Approach (ICD-10-PCS; 2020-04-23)
PROC: 8E0ZXY6 Isolation (ICD-10-PCS; 2020-04-23)
PROC: 0BNK4ZZ Release Right Lung, Percutaneous Endoscopic Approach (ICD-10-PCS; principal; 2020-04-24)
PROC: 5A09357 Assistance with Respiratory Ventilation, Less than 24 Consecutive Hours, Continuous Positive Airway Pressure (ICD-10-PCS; 2020-04-24)
PROC: 0T9B70Z Drainage of Bladder with Drainage Device, Via Natural or Artificial Opening (ICD-10-PCS; 2020-04-25)
PROC: 02HV33Z Insertion of Infusion Device into Superior Vena Cava, Percutaneous Approach (ICD-10-PCS; 2020-05-02)
PROC: B548ZZA Ultrasonography of Superior Vena Cava, Guidance (ICD-10-PCS; 2020-05-02)
DX: A41.52 Sepsis due to Pseudomonas (principal); J85.1 Abscess of lung with pneumonia; J96.21 Acute and chronic respiratory failure with hypoxia; Z68.41 Body mass index [BMI] 40.0-44.9, adult; J91.8 Pleural effusion in other conditions classified elsewhere; G93.40 Encephalopathy, unspecified; F31.9 Bipolar disorder, unspecified; G47.30 Sleep apnea, unspecified; E66.01 Morbid (severe) obesity due to excess calories; I10 Essential (primary) hypertension; Z88.2 Allergy status to sulfonamides; Z88.8 Allergy status to other drugs, medicaments and biological substances; Z79.899 Other long term (current) drug therapy
CPT/HCPCS: 36415; 36569; 71045; 71250; 80048; 80053; 80164; 82150; 82945; 83615; 83986; 84157; 84478; 85025; 85060; 86480; 87070; 87116; 87205; 87206; 88112; 88305; 89051; 94660; C1751; J0696; J1100; J1642; J1650; J1885; J2185; J2405; J2704; J3010; J3370; J3490

== ENCOUNTER 2021-05-09 06:33 | Inpatient (IN) | payer MEDICARE, OTHER ==
[2021-05-09 08:54] LABS: #Lymphocytes 0.3 thou/uL (1.20-3.40); #Monocytes 0.2 thou/uL (0.11-0.59); #Neutrophils 4.2 thou/uL (1.40-6.50); %Basophils 0.4 % (0.0-1.0); %Eosinophils 0.2 % (0.0-10.0); %Lymphocytes 6.6 % (21.0-51.0); %Monocytes 4.2 % (0.0-10.0); %Neutrophils 88.6 % (42.0-75.0); Hemoglobin 13.1 g/dL (12.0-16.0); MDiff Complete? YES; Mean Corpuscular HGB CONC 34.2 g/dL (32.0-36.0); Mean Corpuscular Hemoglobin 32.7 pg (27.0-31.0); Mean Corpuscular Volume 95.6 fL (78.0-98.0); Mean Platelet Volume 8.5 fL (7.4-10.4); Platelet Count 99 thou/uL (130-400); Platelet Morphology Comment Appears Decreased; Polychromasia SLIGHT = 2-3 cells (100X) (0-2/hpf); RBC Distribution Width 12.1 % (11.5-14.5); Red Blood Cell (RBC) Count 4.01 mill/uL (4.20-5.40); White Blood Cell (WBC) Count 4.7 thou/uL (4.8-10.8)
[2021-05-09 08:59] LABS: ALT (SGPT) 15 U/L (8-55); AST (SGOT) 30 U/L (5-34); Albumin 3.2 g/dL (3.4-4.8); Alkaline Phosphatase 48 U/L (40-110); Anion Gap 11 mmol/L (10-20); BUN (Urea Nitrogen) 27 mg/dL (9.8-20.1); Bilirubin, Total 0.6 mg/dL (0.2-1.2); Calc. Creatinine Clearance 0 mL/min (70-130); Calcium 9.8 mg/dL (7.8-10.44); Carbon Dioxide 24 mmol/L (23-31); Chloride 104 mmol/L (98-107); Globulin 2.8 g/dL (2.4-3.5); Glucose 100 mg/dL (83-110); Magnesium 1.6 mg/dL (1.6-2.6); Potassium 4.1 mmol/L (3.5-5.1); Sodium 135 mmol/L (136-145)
[2021-05-09] MEDS ORDERED: Enoxaparin Sodium 60 MG/0.6 ML SYRINGE ONE (10:10)
[2021-05-09] MEDS ORDERED: Enoxaparin Sodium 30 MG/0.3 ML SYRINGE ONE (10:10)
[2021-05-09] MEDS ORDERED: Aspirin Chewable 81 MG TAB ONE (10:10)
[2021-05-09 11:25] LABS: SARS-CoV-2 NAA Rapid Test Not Detected (NotDetected)
[2021-05-09] MEDS ORDERED: Ondansetron PF 4 MG/2 ML Vial IVP PRN (12:32)
[2021-05-09] MEDS ORDERED: Nitroglycerin 0.4 MG TAB (25 Tab Bottle) SL PRN (12:32)
[2021-05-09] MEDS ORDERED: Sodium Chloride 0.9% 1,000 ML IV SCH (12:45)
[2021-05-09] MEDS ORDERED: Aspirin Chewable 81 MG TAB PO SCH (13:00)
[2021-05-09 14:48] LABS: Bacteria/HPF None Seen HPF (None Seen); Bilirubin Negative (Negative); Blood, Urine Negative (Negative); Clarity Clear (Clear); Glucose, Urine (Dipstick) Normal (Negative); Ketone, Urine Negative (Negative); Leukocyte Negative Leu/uL (Negative); Nitrite Negative (Negative); Protein, Urine (Dipstick) Negative (Neg-Trace); RBC/HPF None Seen HPF (0-3); Specific Gravity, Urine 1.012 (1.002-1.036); Squamous Epithelial 0-3 HPF (0-3); Urobilinogen Normal mg/dL (Less than 2); WBC/HPF 0-3 HPF (0-3)
[2021-05-09 14:59] LABS: Urine Culture Reflex No No
[2021-05-09 15:48] LABS: Troponin I 0.918 ng/mL (< 0.028)
[2021-05-09 16:55] VITALS: BMI 33.2
[2021-05-09 20:35] LABS: Critical Call Chem Troponin I RESULT DECREASING; Troponin I 0.581 ng/mL (< 0.028)
[2021-05-09] MEDS ORDERED: Enoxaparin Sodium 100 MG/ML SYRINGE SC SCH (21:00)
[2021-05-09] MEDS: Atorvastatin Calcium 40 MG TAB PO SCH (22:36)
[2021-05-09] MEDS: Metoprolol Tartrate 25 MG TAB PO SCH (22:36)
[2021-05-09] MEDS: Melatonin 3 MG TAB PO SCH (22:39)
[2021-05-09] MEDS: Aripiprazole 2 MG TAB PO SCH (22:40)
[2021-05-09] MEDS: Divalproex Sodium 125 mg Sprinkle Capsule PO SCH (22:40)
[2021-05-10 05:53] LABS: Anion Gap 12 mmol/L (10-20); BUN (Urea Nitrogen) 22 mg/dL (9.8-20.1); Calc. Creatinine Clearance 80 mL/min (70-130); Calcium 9.2 mg/dL (7.8-10.44); Carbon Dioxide 24 mmol/L (23-31); Chloride 107 mmol/L (98-107); Glucose 84 mg/dL (83-110); Potassium 3.9 mmol/L (3.5-5.1); Sodium 139 mmol/L (136-145)
[2021-05-10 06:02] LABS: Critical Call Chem Troponin I RESULT DECREASING; Troponin I 0.342 ng/mL (< 0.028)
[2021-05-10] MEDS: Aspirin Chewable 81 MG TAB PO SCH (07:58)
[2021-05-10] MEDS: Divalproex Sodium 125 mg Sprinkle Capsule PO SCH ×2 (07:59→20:21)
[2021-05-10] MEDS: Metoprolol Tartrate 25 MG TAB PO SCH ×2 (08:19→20:20)
[2021-05-10] MEDS ORDERED: FLU VACC QS2021-22(65YR UP)/PF 240 MCG/0.7 ML SYRINGE IM ONE (09:00)
[2021-05-10] MEDS ORDERED: Regadenoson 0.4 MG/5 ML SYRINGE ONE (12:52)
[2021-05-10] MEDS: Atorvastatin Calcium 40 MG TAB PO SCH (20:21)
[2021-05-10] MEDS: Aripiprazole 2 MG TAB PO SCH (20:21)
[2021-05-10] MEDS: Melatonin 3 MG TAB PO SCH (20:22)
[2021-05-11 05:09] LABS: #Eosinphils 0.2 thou/uL (0.0-0.7); #Monocytes 0.3 thou/uL (0.11-0.59); %Basophils 0.6 % (0.0-1.0); %Eosinophils 4.4 % (0.0-10.0); %Monocytes 8.9 % (0.0-10.0); %Neutrophils 58.1 % (42.0-75.0); Hemoglobin 12.2 g/dL (12.0-16.0); Mean Corpuscular HGB CONC 33.3 g/dL (32.0-36.0); Platelet Count 100 thou/uL (130-400); RBC Distribution Width 12.2 % (11.5-14.5); Red Blood Cell (RBC) Count 3.83 mill/uL (4.20-5.40); White Blood Cell (WBC) Count 3.5 thou/uL (4.8-10.8)
[2021-05-11 05:26] LABS: Anion Gap 12 mmol/L (10-20); BUN (Urea Nitrogen) 22 mg/dL (9.8-20.1); Calc. Creatinine Clearance 82 mL/min (70-130); Carbon Dioxide 24 mmol/L (23-31); Chloride 107 mmol/L (98-107); Glucose 92 mg/dL (83-110); Potassium 3.8 mmol/L (3.5-5.1); Sodium 139 mmol/L (136-145)
[2021-05-11 05:28] LABS: Troponin I 0.106 ng/mL (< 0.028)
[2021-05-11] MEDS ORDERED: Enoxaparin Sodium 40 MG/0.4 ML SYRINGE SC SCH (09:00)
[2021-05-11] MEDS: Divalproex Sodium 125 mg Sprinkle Capsule PO SCH (10:00)
[2021-05-11] MEDS: Aspirin Chewable 81 MG TAB PO SCH (10:00)
[2021-05-11] MEDS ORDERED: Potassium Chloride 20 MEQ TAB PO SCH (10:30)
[2021-05-11] MEDS ORDERED: Magnesium 2 GM/50 ML 2 GM in Premix Bag 1 BAG IVPB SCH (11:00)
[2021-05-11 15:40] VITALS: TEMP 98.3
[2021-05-11 16:24] VITALS: BP 107/55
[2021-05-12] MEDS ORDERED: Folic Acid 1 MG TAB PO SCH (09:00)
[2021-05-12] MEDS ORDERED: Multivit, Therapeutic 1 TAB PO SCH (09:00)
== END 2021-05-11 18:24 | disposition home or self-care (01) | DRG 280 ==
LOC: ERS 06:33 → ERHOLD 10:15 → 2NO 15:29
PROVIDERS: ADMIT Family Medicine; ATTEND Internal Medicine
DX: I21.4 Non-ST elevation (NSTEMI) myocardial infarction (principal); G93.41 Metabolic encephalopathy; E87.1 Hypo-osmolality and hyponatremia; Z20.822 Contact with and (suspected) exposure to COVID-19; F31.9 Bipolar disorder, unspecified; G20 Parkinson's disease; I08.1 Rheumatic disorders of both mitral and tricuspid valves; D72.819 Decreased white blood cell count, unspecified; D69.6 Thrombocytopenia, unspecified; N18.2 Chronic kidney disease, stage 2 (mild); Z88.2 Allergy status to sulfonamides; Z88.8 Allergy status to other drugs, medicaments and biological substances; Z90.49 Acquired absence of other specified parts of digestive tract; Z79.899 Other long term (current) drug therapy; Z79.51 Long term (current) use of inhaled steroids
CPT/HCPCS: 0240U; 36415; 70450; 71045; 72125; 78452; 80048; 80053; 80164; 81001; 82553; 83605; 83735; 84443; 84484; 85025; 87040; 93005; 93017; 93306; 94760; A9500; J1650; J2785; J3475; J7050

== ENCOUNTER 2021-05-14 10:14 | Outpatient (CLI) | payer MEDICARE, OTHER | END 2021-05-14 10:15 | disposition home or self-care (01) | LOC: BICRAD 10:14 | PROVIDERS: ATTEND Nurse Practitioner Family | DX: M25.512 Pain in left shoulder (principal); M25.511 Pain in right shoulder; M19.012 Primary osteoarthritis, left shoulder ==

== ENCOUNTER 2021-10-02 15:29 | Outpatient (CLI) | payer MEDICARE, OTHER | END 2021-10-02 15:30 | disposition home or self-care (01) | LOC: BICULT 15:29 | PROVIDERS: ATTEND Nurse Practitioner Family | DX: G93.41 Metabolic encephalopathy (principal); R94.6 Abnormal results of thyroid function studies; E04.1 Nontoxic single thyroid nodule | CPT/HCPCS: 76536 ==

== ENCOUNTER 2021-11-13 12:03 | Emergency (ER) | payer MEDICARE, OTHER ==
[2021-11-13] MEDS ORDERED: Apixaban 5 MG TAB PO SCH (15:15)
== END 2021-11-13 15:38 | disposition home or self-care (01) ==
LOC: ERS 12:03
DX: I82.412 Acute embolism and thrombosis of left femoral vein (principal); Z79.82 Long term (current) use of aspirin; Z79.899 Other long term (current) drug therapy
CPT/HCPCS: 72170

== ENCOUNTER 2022-03-25 13:32 | Outpatient (CLI) | payer MEDICARE, OTHER ==
[~2022-03-25 13:32] MED LIST: Magnevist 469MG/ML 20 ML VIAL ONE
== END 2022-03-25 13:33 | disposition home or self-care (01) ==
LOC: MRI 13:32
PROVIDERS: ATTEND Psychiatry & Neurology Psychiatry
DX: F33.2 Major depressive disorder, recurrent severe without psychotic features (principal); R41.841 Cognitive communication deficit
CPT/HCPCS: 70553; A9579

== ENCOUNTER 2022-06-25 06:37 | Inpatient (IN) | payer MEDICARE, OTHER ==
[2022-06-25 07:37] LABS: ALT (SGPT) 12 U/L (8-55); AST (SGOT) 24 U/L (5-34); Albumin 3.9 g/dL (3.4-4.8); Alkaline Phosphatase 46 U/L (40-110); Anion Gap 11 mmol/L (10-20); BUN (Urea Nitrogen) 30 mg/dL (9.8-20.1); Bilirubin, Total 0.4 mg/dL (0.2-1.2); Calc. Creatinine Clearance 0 mL/min (70-130); Calcium 9.9 mg/dL (7.8-10.44); Carbon Dioxide 27 mmol/L (23-31); Chloride 105 mmol/L (98-107); Estimated GFR 47; Globulin 2.8 g/dL (2.4-3.5); Glucose 99 mg/dL (83-110); Potassium 4.1 mmol/L (3.5-5.1); Protein, Total 6.7 g/dL (5.8-8.1); Sodium 139 mmol/L (136-145)
[2022-06-25 08:13] LABS: #Eosinphils 0.1 thou/uL (0.0-0.7); #Lymphocytes 0.8 thou/uL (1.20-3.40); #Monocytes 0.7 thou/uL (0.11-0.59); #Neutrophils 5.5 thou/uL (1.40-6.50); %Basophils 0.4 % (0.0-1.0); %Lymphocytes 10.8 % (21.0-51.0); %Monocytes 9.7 % (0.0-10.0); %Neutrophils 78.1 % (42.0-75.0); Hemoglobin 13.9 g/dL (12.0-16.0); Mean Corpuscular Hemoglobin 32.4 pg (27.0-31.0); Mean Corpuscular Volume 98.3 fl (78.0-98.0); Mean Platelet Volume 9.3 fL (7.4-10.4); Platelet Count 118 10x3/uL (130-400); RBC Distribution Width 12.1 % (11.5-14.5); Red Blood Cell (RBC) Count 4.29 mill/uL (4.20-5.40); White Blood Cell (WBC) Count 7.1 10x3/uL (4.8-10.8)
[2022-06-25 09:07] LABS: Bilirubin Negative (Negative); Blood, Urine Negative (Negative); Clarity Clear (Clear); Glucose, Urine (Dipstick) Normal (Negative); Ketone, Urine Negative (Negative); Leukocyte Negative Leu/uL (Negative); Nitrite Negative (Negative); Protein, Urine (Dipstick) Negative (Neg-Trace); Specific Gravity, Urine 1.013 (1.002-1.036); Urobilinogen Normal mg/dL (Less than 2); pH, Urine 6.5 (5.0-9.0)
[2022-06-25] MEDS ORDERED: Ondansetron ODT 4 MG TAB PO PRN (10:27)
[2022-06-25] MEDS ORDERED: Acetaminophen 650 MG Suppository PR PRN (10:27)
[2022-06-25] MEDS ORDERED: Ondansetron PF 4 MG/2 ML Vial IVP PRN (10:27)
[2022-06-25 11:47] LABS: Troponin I 0.017 ng/mL (< 0.028)
[2022-06-25 13:09] VITALS: BMI 38.9
[2022-06-25 13:19] LABS: Troponin I Less than 0.010 ng/mL (< 0.028)
[2022-06-25 17:59] LABS: SARS-CoV-2 NAA Rapid Test DETECTED (NotDetected)
[2022-06-25] MEDS: Sodium Chloride 0.9% 1,000 ML IV SCH (18:35)
[2022-06-25] MEDS ORDERED: Rosuvastatin 20 MG TAB PO SCH (21:00)
[2022-06-25] MEDS: Sertraline 100 MG TAB PO SCH (21:37)
[2022-06-25] MEDS: Acetaminophen 325 MG TAB PO PRN (21:38)
[2022-06-25] MEDS: Melatonin 3 MG TAB PO PRN (21:38)
[2022-06-25] MEDS: Cholecalciferol 1,000 UNITS (25 MCG) TAB PO SCH (21:38)
[2022-06-25] MEDS: Calcium Carbonate + Vit D 250 MG TAB PO SCH (21:39)
[2022-06-26] MEDS: Sodium Chloride 0.9% 1,000 ML IV SCH (05:23)
[2022-06-26 05:24] LABS: #Lymphocytes 0.9 thou/uL (1.20-3.40); #Neutrophils 6.8 thou/uL (1.40-6.50); %Basophils 0.4 % (0.0-1.0); %Eosinophils 0.3 % (0.0-10.0); %Lymphocytes 10.2 % (21.0-51.0); Hemoglobin 13.3 g/dL (12.0-16.0); Mean Corpuscular HGB CONC 33.4 g/dL (32.0-36.0); Mean Corpuscular Hemoglobin 32.8 pg (27.0-31.0); Mean Corpuscular Volume 98.3 fl (78.0-98.0); Mean Platelet Volume 8.8 fL (7.4-10.4); Platelet Count 116 10x3/uL (130-400); Red Blood Cell (RBC) Count 4.06 mill/uL (4.20-5.40); White Blood Cell (WBC) Count 8.7 10x3/uL (4.8-10.8)
[2022-06-26 05:36] LABS: Anion Gap 12 mmol/L (10-20); BUN (Urea Nitrogen) 20 mg/dL (9.8-20.1); Calc. Creatinine Clearance 85 mL/min (70-130); Calcium 9.5 mg/dL (7.8-10.44); Carbon Dioxide 22 mmol/L (23-31); Chloride 107 mmol/L (98-107); Estimated GFR 64; Glucose 97 mg/dL (83-110); Sodium 137 mmol/L (136-145)
[2022-06-26] MEDS: Cholecalciferol 1,000 UNITS (25 MCG) TAB PO SCH ×2 (08:46→21:54)
[2022-06-26] MEDS: Aspirin Chewable 81 MG TAB PO SCH (08:46)
[2022-06-26] MEDS: Calcium Carbonate + Vit D 250 MG TAB PO SCH ×2 (08:46→21:54)
[2022-06-26] MEDS: Sertraline 100 MG TAB PO SCH (21:53)
[2022-06-26] MEDS: Acetaminophen 325 MG TAB PO PRN (21:54)
[2022-06-26] MEDS: Melatonin 3 MG TAB PO PRN (21:56)
[2022-06-26] MEDS: NIRMATRELVIR 150 MG/RITONAVIR 100 MG PO SCH (22:28)
[2022-06-27] MEDS: Sodium Chloride 0.9% 1,000 ML IV SCH ×2 (02:30→09:11)
[2022-06-27 04:43] LABS: #Lymphocytes 0.9 thou/uL (1.20-3.40); #Monocytes 0.8 thou/uL (0.11-0.59); #Neutrophils 5.7 thou/uL (1.40-6.50); %Basophils 0.3 % (0.0-1.0); %Eosinophils 0.5 % (0.0-10.0); %Lymphocytes 12.1 % (21.0-51.0); %Monocytes 11.3 % (0.0-10.0); %Neutrophils 75.7 % (42.0-75.0); Hemoglobin 12.5 g/dL (12.0-16.0); Mean Corpuscular HGB CONC 34.2 g/dL (32.0-36.0); Mean Corpuscular Hemoglobin 33.7 pg (27.0-31.0); Mean Corpuscular Volume 98.5 fl (78.0-98.0); Mean Platelet Volume 8.6 fL (7.4-10.4); Platelet Count 111 10x3/uL (130-400); RBC Distribution Width 12.1 % (11.5-14.5); Red Blood Cell (RBC) Count 3.72 mill/uL (4.20-5.40); White Blood Cell (WBC) Count 7.5 10x3/uL (4.8-10.8)
[2022-06-27 05:03] LABS: Anion Gap 11 mmol/L (10-20); BUN (Urea Nitrogen) 19 mg/dL (9.8-20.1); Calc. Creatinine Clearance 83 mL/min (70-130); Calcium 9.1 mg/dL (7.8-10.44); Carbon Dioxide 25 mmol/L (23-31); Chloride 107 mmol/L (98-107); Estimated GFR 62; Glucose 93 mg/dL (83-110); Potassium 3.9 mmol/L (3.5-5.1); Sodium 139 mmol/L (136-145)
[2022-06-27] MEDS: Loratadine 10 MG TAB PO SCH (09:00)
[2022-06-27] MEDS: Aspirin Chewable 81 MG TAB PO SCH (09:00)
[2022-06-27] MEDS: Calcium Carbonate + Vit D 250 MG TAB PO SCH ×2 (09:00→21:41)
[2022-06-27] MEDS ORDERED: Fluticasone Propionate Nasal Spray 16 gm Bottle NASAL SCH (09:00)
[2022-06-27] MEDS: NIRMATRELVIR 150 MG/RITONAVIR 100 MG PO SCH ×2 (09:01→21:42)
[2022-06-27] MEDS: Cholecalciferol 1,000 UNITS (25 MCG) TAB PO SCH (09:08)
[2022-06-27] MEDS ORDERED: Dexamethasone 10 MG in Sodium Chloride 0.9% 50 ML IVPB SCH (10:57)
[2022-06-27] MEDS ORDERED: Albuterol 200 PUFF (6.7GM INHALER) INH PRN (10:57)
[2022-06-27] MEDS ORDERED: Doxycycline 100 MG CAP PO SCH ×2 (10:59→11:15)
[2022-06-27] MEDS ORDERED: guaiFENesin/Codeine 200 mg/20 mg 10 ml Cup PO PRN (10:59)
[2022-06-27] MEDS ORDERED: Dexamethasone 10 MG/ML VIAL SLOW IVP SCH (11:00)
[2022-06-27] MEDS: Benzonatate 100 MG CAP PO SCH ×2 (15:28→21:41)
[2022-06-27] MEDS: Sertraline 100 MG TAB PO SCH (21:41)
[2022-06-27] MEDS: Doxycycline 100 MG CAP PO SCH (21:41)
[2022-06-27] MEDS: guaiFENesin ER 600 MG TAB PO SCH (21:41)
[2022-06-28 05:13] LABS: #Lymphocytes 0.7 thou/uL (1.20-3.40); #Monocytes 0.2 thou/uL (0.11-0.59); #Neutrophils 6.7 thou/uL (1.40-6.50); %Basophils 0.1 % (0.0-1.0); %Eosinophils 0.1 % (0.0-10.0); %Lymphocytes 9.7 % (21.0-51.0); Hemoglobin 13.3 g/dL (12.0-16.0); Mean Corpuscular HGB CONC 33.5 g/dL (32.0-36.0); Mean Corpuscular Hemoglobin 32.9 pg (27.0-31.0); Mean Corpuscular Volume 98.1 fl (78.0-98.0); Mean Platelet Volume 9.7 fL (7.4-10.4); Platelet Count 107 10x3/uL (130-400); RBC Distribution Width 11.9 % (11.5-14.5); Red Blood Cell (RBC) Count 4.04 mill/uL (4.20-5.40); White Blood Cell (WBC) Count 7.7 10x3/uL (4.8-10.8)
[2022-06-28 05:33] LABS: ALT (SGPT) 16 U/L (8-55); AST (SGOT) 23 U/L (5-34); Albumin 3.3 g/dL (3.4-4.8); Alkaline Phosphatase 51 U/L (40-110); Anion Gap 12 mmol/L (10-20); BUN (Urea Nitrogen) 22 mg/dL (9.8-20.1); Bilirubin, Total 0.3 mg/dL (0.2-1.2); CRP (Inflammatory) 15.35 mg/dL (= or < 0.5); Calc. Creatinine Clearance 86 mL/min (70-130); Calcium 9.7 mg/dL (7.8-10.44); Carbon Dioxide 25 mmol/L (23-31); Chloride 106 mmol/L (98-107); Estimated GFR 65; Globulin 3.1 g/dL (2.4-3.5); Glucose 138 mg/dL (83-110); Potassium 4.5 mmol/L (3.5-5.1); Protein, Total 6.4 g/dL (5.8-8.1); Sodium 138 mmol/L (136-145)
[2022-06-28] MEDS: Cholecalciferol (Vitamin D3) 400 UNITS TAB PO SCH (10:23)
[2022-06-28] MEDS: Calcium Carbonate + Vit D 250 MG TAB PO SCH ×2 (10:23→20:39)
[2022-06-28] MEDS: Zinc Sulfate 220 MG CAP PO SCH (10:23)
[2022-06-28] MEDS: guaiFENesin ER 600 MG TAB PO SCH ×2 (10:23→20:40)
[2022-06-28] MEDS: Ascorbic Acid 500 mg Chewable Tablet PO SCH (10:23)
[2022-06-28] MEDS: Aspirin Chewable 81 MG TAB PO SCH (10:24)
[2022-06-28] MEDS: Doxycycline 100 MG CAP PO SCH ×2 (10:24→20:39)
[2022-06-28] MEDS: NIRMATRELVIR 150 MG/RITONAVIR 100 MG PO SCH ×2 (10:24→20:46)
[2022-06-28] MEDS: Loratadine 10 MG TAB PO SCH (10:24)
[2022-06-28] MEDS: Benzonatate 100 MG CAP PO SCH ×3 (10:24→20:39)
[2022-06-28] MEDS: Dexamethasone 10 MG/ML VIAL SLOW IVP SCH (10:24)
[2022-06-28] MEDS: Sertraline 100 MG TAB PO SCH (20:40)
[2022-06-29 04:57] LABS: #Monocytes 0.3 thou/uL (0.11-0.59); #Neutrophils 10.4 thou/uL (1.40-6.50); %Basophils 0.1 % (0.0-1.0); %Eosinophils 0.1 % (0.0-10.0); %Lymphocytes 8.5 % (21.0-51.0); %Monocytes 2.3 % (0.0-10.0); Hemoglobin 13.3 g/dL (12.0-16.0); Mean Corpuscular HGB CONC 33.7 g/dL (32.0-36.0); Mean Corpuscular Hemoglobin 32.7 pg (27.0-31.0); Mean Corpuscular Volume 97.1 fl (78.0-98.0); Mean Platelet Volume 9.4 fL (7.4-10.4); Platelet Count 137 10x3/uL (130-400); Red Blood Cell (RBC) Count 4.07 mill/uL (4.20-5.40); White Blood Cell (WBC) Count 11.7 10x3/uL (4.8-10.8)
[2022-06-29 08:00] VITALS: TEMP 97.4
[2022-06-29] MEDS: Cholecalciferol (Vitamin D3) 400 UNITS TAB PO SCH (09:25)
[2022-06-29] MEDS: guaiFENesin ER 600 MG TAB PO SCH (09:25)
[2022-06-29] MEDS: Aspirin Chewable 81 MG TAB PO SCH (09:25)
[2022-06-29] MEDS: Benzonatate 100 MG CAP PO SCH (09:25)
[2022-06-29] MEDS: Ascorbic Acid 500 mg Chewable Tablet PO SCH (09:25)
[2022-06-29] MEDS: Zinc Sulfate 220 MG CAP PO SCH (09:26)
[2022-06-29] MEDS: Calcium Carbonate + Vit D 250 MG TAB PO SCH (09:26)
[2022-06-29] MEDS: Loratadine 10 MG TAB PO SCH (09:27)
[2022-06-29] MEDS: Doxycycline 100 MG CAP PO SCH (09:27)
[2022-06-29] MEDS: Dexamethasone 10 MG/ML VIAL SLOW IVP SCH (09:28)
[2022-06-29] MEDS: NIRMATRELVIR 150 MG/RITONAVIR 100 MG PO SCH (09:31)
[2022-06-29 13:12] VITALS: BP 133/59
== END 2022-06-29 13:36 | disposition home or self-care (01) | DRG 177 ==
LOC: ERS 06:37 → SUATTDRO 06:37 → 2NO 09:55 → OBSVTOIN 06-26 11:37
PROVIDERS: ADMIT Internal Medicine; ATTEND Internal Medicine
PROC: XW0DXF5 Introduction of Other New Technology Therapeutic Substance into Mouth and Pharynx, External Approach, New Technology Group 5 (ICD-10-PCS; principal; 2022-06-26)
PROC: 8E0ZXY6 Isolation (ICD-10-PCS; 2022-06-26)
DX: U07.1 COVID-19 (principal); J96.01 Acute respiratory failure with hypoxia; N17.9 Acute kidney failure, unspecified; F31.31 Bipolar disorder, current episode depressed, mild; E86.0 Dehydration; I10 Essential (primary) hypertension; Z88.2 Allergy status to sulfonamides; Z88.8 Allergy status to other drugs, medicaments and biological substances; Z79.899 Other long term (current) drug therapy; Z79.51 Long term (current) use of inhaled steroids; Z79.82 Long term (current) use of aspirin; Z98.890 Other specified postprocedural states; Z81.8 Family history of other mental and behavioral disorders; I25.2 Old myocardial infarction
CPT/HCPCS: 36415; 70450; 71045; 80048; 80053; 81003; 84145; 84443; 84484; 85025; 86140; 87086; 93005; G0378; J1100; J7050

== ENCOUNTER 2022-07-01 12:42 | Emergency (ER) | payer MEDICARE, OTHER | END 2022-07-01 15:31 | disposition home or self-care (01) | LOC: ERS 12:42 | DX: S93.402A Sprain of unspecified ligament of left ankle, initial encounter (principal); W18.30XA Fall on same level, unspecified, initial encounter ==

== ENCOUNTER 2022-07-30 11:59 | Outpatient (CLI) | payer MEDICARE, OTHER | END 2022-07-30 12:00 | disposition home or self-care (01) | LOC: BICRAD 11:59 | PROVIDERS: ATTEND Nurse Practitioner Family | DX: U07.1 COVID-19 (principal) | CPT/HCPCS: 71046 ==

== ENCOUNTER 2022-11-07 14:03 | Outpatient (CLI) | payer MEDICARE, OTHER | END 2022-11-07 14:04 | disposition home or self-care (01) | LOC: CT 14:03 | PROVIDERS: ATTEND Psychiatry & Neurology Neurology | DX: G20 Parkinson's disease (principal); H74.8X3 Other specified disorders of middle ear and mastoid, bilateral | CPT/HCPCS: 70450 ==

== ENCOUNTER 2023-01-06 14:02 | Outpatient (CLI) | payer MEDICARE, OTHER | END 2023-01-06 14:03 | disposition home or self-care (01) | LOC: BICRAD 14:02 | PROVIDERS: ATTEND Nurse Practitioner Family | DX: R09.89 Other specified symptoms and signs involving the circulatory and respiratory systems (principal); R05.9 Cough, unspecified; U07.1 COVID-19 | CPT/HCPCS: 71046; 87635 ==

== ENCOUNTER 2023-06-10 11:47 | Outpatient (CLI) | payer MEDICARE, OTHER | END 2023-06-10 11:48 | disposition home or self-care (01) | LOC: ULT 11:47 | PROVIDERS: ATTEND Nurse Practitioner Family | DX: R32 Unspecified urinary incontinence (principal); N32.89 Other specified disorders of bladder | CPT/HCPCS: 76856 ==

== ENCOUNTER 2023-11-16 19:52 | Emergency (ER) | payer MEDICARE, OTHER ==
[2023-11-16] MEDS ORDERED: Boostrix 0.5 ML (Tdap) VIAL (>/=7 yrs of age) ONE (20:48)
[2023-11-16] MEDS ORDERED: Lidocaine 1% PF 5 ML VIAL ONE (20:48)
[2023-11-16] MEDS ORDERED: Lidocaine 1% w/Epinephrine 1:100K 20 ML VIAL ONE (20:55)
== END 2023-11-16 22:29 | disposition home or self-care (01) ==
LOC: ERS 19:52
DX: S81.812A Laceration without foreign body, left lower leg, initial encounter (principal); I25.2 Old myocardial infarction
CPT/HCPCS: 12002; 90471; 90715

== ENCOUNTER 2024-01-21 11:13 | Outpatient (CLI) | payer MEDICARE, OTHER | END 2024-01-21 11:14 | disposition home or self-care (01) | LOC: BICRAD 11:13 | PROVIDERS: ATTEND Nurse Practitioner Family | DX: Z01.818 Encounter for other preprocedural examination (principal); I77.810 Thoracic aortic ectasia | CPT/HCPCS: 71046 ==

== ENCOUNTER 2024-05-03 13:12 | Outpatient (CLI) | payer MEDICARE, OTHER ==
[2024-05-03] MEDS ORDERED: Iopamidol 370 76% 100 ML VIAL ONE (15:24)
== END 2024-05-03 13:13 | disposition home or self-care (01) ==
LOC: CT 13:12
PROVIDERS: ATTEND Nurse Practitioner Family
DX: R06.02 Shortness of breath (principal); R05.9 Cough, unspecified; R09.89 Other specified symptoms and signs involving the circulatory and respiratory systems; R59.0 Localized enlarged lymph nodes; D47.9 Neoplasm of uncertain behavior of lymphoid, hematopoietic and related tissue, unspecified; Z71.89 Other specified counseling
CPT/HCPCS: 71270

== ENCOUNTER 2024-06-03 15:30 | Outpatient (CLI) | payer MEDICARE, OTHER | END 2024-06-03 15:31 | disposition home or self-care (01) | LOC: BICULT 15:30 | PROVIDERS: ATTEND Nurse Practitioner Family | DX: M79.652 Pain in left thigh (principal) ==

== ENCOUNTER 2024-06-07 13:02 | Outpatient (CLI) | payer MEDICARE, OTHER | END 2024-06-07 13:03 | disposition home or self-care (01) | LOC: BICMAMMO 13:02 | PROVIDERS: ATTEND Nurse Practitioner Family | DX: Z78.0 Asymptomatic menopausal state (principal); M85.851 Other specified disorders of bone density and structure, right thigh; M85.852 Other specified disorders of bone density and structure, left thigh | CPT/HCPCS: 77080 ==

== ENCOUNTER 2025-01-07 01:03 | Inpatient (IN) | payer MEDICARE, OTHER ==
[2025-01-07 01:45] LABS: #Basophils 0.04 10x3/uL (0.0-0.2); #Eosinophils Less than 0.03 10x3/uL (0.0-0.7); #Monocytes 0.94 10x3/uL (0.11-0.59); #Neutrophils 14.33 10x3/uL (1.40-6.50); %Basophils 0.3 % (0.0-1.0); %Eosinophils 0.0 % (0.0-10.0); %Lymphocytes 3.6 % (21.0-51.0); %Monocytes 5.9 % (0.0-10.0); %Neutrophils 89.7 % (42.0-75.0); Hematocrit 43.7 % (36.0-47.0); Hemoglobin 14.3 g/dL (12.0-16.0); Mean Corpuscular Hemoglobin 30.6 pg (27.0-31.0); Mean Corpuscular Volume 93.4 fL (78.0-98.0); Platelet Count 139 10x3/uL (130-400); Red Blood Cell (RBC) Count 4.68 mill/uL (4.20-5.40); White Blood Cell (WBC) Count 15.96 10x3/uL (4.8-10.8)
[2025-01-07 01:55] LABS: INR-International Normal Ratio 1.2; Prothrombin Time 14.9 sec (12.0-14.7)
[2025-01-07 01:57] LABS: PTT 36.0 sec (22.9-36.1)
[2025-01-07 02:06] LABS: Acetaminophen Less than 10 mcg/mL (Less than 10); Lipase 14 U/L (8-78); Magnesium 1.7 mg/dL (1.6-2.6); Salicylate Less than 8.0 mg/dL (Less than 8.0)
[2025-01-07 02:08] LABS: ALT (SGPT) 18 U/L (Less than 34); AST (SGOT) 41 U/L (11-34); Albumin 3.7 g/dL (3.1-4.5); Alkaline Phosphatase 57 U/L (40-110); Anion Gap 17 mmol/L (10-20); BUN (Urea Nitrogen) 35 mg/dL (9.8-20.1); Bilirubin, Total 0.9 mg/dL (0.3-1.2); Calc. Creatinine Clearance 0 mL/min (70-130); Calcium 10.6 mg/dL (7.8-10.44); Carbon Dioxide 26 mmol/L (23-31); Chloride 98 mmol/L (98-107); Globulin 3.6 g/dL (2.4-3.5); Glucose 103 mg/dL (83-110); Potassium 4.3 mmol/L (3.5-5.1); Sodium 137 mmol/L (136-145)
[2025-01-07 04:19] LABS: Bacteria/HPF None Seen HPF (None Seen); CAUTI Indications for Culture Dysuria,urgency,freq; Glucose, Urine (Dipstick) Normal (Negative); Leukocyte 500 Leu/uL (Negative); Protein, Urine (Dipstick) Negative (Neg-Trace); RBC/HPF 0-3 HPF (0-3); Specific Gravity, Urine 1.021 (1.002-1.036); WBC/HPF Greater than 50 HPF (0-3)
[2025-01-07 04:21] LABS: Urine Culture Reflex Yes Yes
[2025-01-07 04:27] LABS: Cocaine Metabolite Screen Negative (Negative); THC/Cannabinoid Screen Negative (Negative); Tricyclic Screen Negative (Negative)
[2025-01-07] MEDS ORDERED: Acetaminophen 325 MG TAB PO PRN (04:45)
[2025-01-07] MEDS ORDERED: Ondansetron PF 4 MG/2 ML Vial IVP PRN ×2 (04:45→04:55)
[2025-01-07] MEDS ORDERED: Calcium Carbonate 500 MG ChewTAB PO PRN (04:55)
[2025-01-07 06:42] VITALS: BMI 43.9
[2025-01-07] MEDS: Vancomycin (BATCH) 2.5 GM in Premix 1 BAG IVPB SCH (06:43)
[2025-01-07] MEDS: cefTRIAXone\\ROCEPHIN 2 GM in Sodium Chloride 0.9% 100 ML IVPB SCH (09:01)
[2025-01-07] MEDS: Enoxaparin 40 MG (0.4 mL) SYRINGE SC SCH (20:42)
[2025-01-08 05:56] LABS: #Basophils 0.04 10x3/uL (0.0-0.2); #Eosinophils 0.15 10x3/uL (0.0-0.7); #Monocytes 0.82 10x3/uL (0.11-0.59); #Neutrophils 8.64 10x3/uL (1.40-6.50); %Basophils 0.4 % (0.0-1.0); %Eosinophils 1.5 % (0.0-10.0); %Lymphocytes 6.0 % (21.0-51.0); %Monocytes 7.9 % (0.0-10.0); %Neutrophils 83.7 % (42.0-75.0); Hematocrit 39.1 % (36.0-47.0); Hemoglobin 12.5 g/dL (12.0-16.0); Mean Corpuscular Hemoglobin 30.5 pg (27.0-31.0); Mean Corpuscular Volume 95.4 fL (78.0-98.0); Platelet Count 105 10x3/uL (130-400); Red Blood Cell (RBC) Count 4.10 mill/uL (4.20-5.40); White Blood Cell (WBC) Count 10.32 10x3/uL (4.8-10.8)
[2025-01-08 06:04] LABS: ALT (SGPT) 19 U/L (Less than 34); AST (SGOT) 36 U/L (11-34); Albumin 2.6 g/dL (3.1-4.5); Alkaline Phosphatase 44 U/L (40-110); Anion Gap 13 mmol/L (10-20); BUN (Urea Nitrogen) 23 mg/dL (9.8-20.1); Bilirubin, Total 0.4 mg/dL (0.3-1.2); Calc. Creatinine Clearance 81 mL/min (70-130); Calcium 9.4 mg/dL (7.8-10.44); Carbon Dioxide 22 mmol/L (23-31); Chloride 111 mmol/L (98-107); Globulin 3.2 g/dL (2.4-3.5); Glucose 104 mg/dL (83-110); Potassium 4.3 mmol/L (3.5-5.1); Sodium 142 mmol/L (136-145)
[2025-01-09 06:16] LABS: Hematocrit 34.6 % (36.0-47.0); Hemoglobin 11.6 g/dL (12.0-16.0); Mean Corpuscular Hemoglobin 31.4 pg (27.0-31.0); Mean Corpuscular Volume 93.5 fL (78.0-98.0); Platelet Count 113 10x3/uL (130-400); Red Blood Cell (RBC) Count 3.70 mill/uL (4.20-5.40); White Blood Cell (WBC) Count 6.55 10x3/uL (4.8-10.8)
[2025-01-09 06:26] LABS: Anion Gap 12 mmol/L (10-20); BUN (Urea Nitrogen) 17 mg/dL (9.8-20.1); Calc. Creatinine Clearance 89 mL/min (70-130); Calcium 9.1 mg/dL (7.8-10.44); Carbon Dioxide 23 mmol/L (23-31); Chloride 110 mmol/L (98-107); Glucose 93 mg/dL (83-110); Potassium 3.9 mmol/L (3.5-5.1); Sodium 141 mmol/L (136-145)
[2025-01-09 06:45] LABS: Anisocytosis SLIGHT = 6-15 cells HPF (0-5); Platelet Adequacy Comment Platelets Decreased
[2025-01-09] MEDS: PNEUMOC 20-VAL CONJ-DIP CRM/PF 0.5 ML SYRINGE IM ONE (08:16)
[2025-01-09] MEDS: Acetaminophen 325 MG TAB PO PRN (15:25)
[2025-01-10 06:19] LABS: #Basophils 0.04 10x3/uL (0.0-0.2); #Eosinophils 0.42 10x3/uL (0.0-0.7); #Monocytes 0.64 10x3/uL (0.11-0.59); #Neutrophils 4.67 10x3/uL (1.40-6.50); %Basophils 0.6 % (0.0-1.0); %Eosinophils 6.6 % (0.0-10.0); %Lymphocytes 8.8 % (21.0-51.0); %Monocytes 10.1 % (0.0-10.0); %Neutrophils 73.6 % (42.0-75.0); Hematocrit 39.4 % (36.0-47.0); Hemoglobin 12.6 g/dL (12.0-16.0); Mean Corpuscular Hemoglobin 30.4 pg (27.0-31.0); Mean Corpuscular Volume 94.9 fL (78.0-98.0); Platelet Count 134 10x3/uL (130-400); Red Blood Cell (RBC) Count 4.15 mill/uL (4.20-5.40); White Blood Cell (WBC) Count 6.35 10x3/uL (4.8-10.8)
[2025-01-10 06:24] LABS: Anion Gap 14 mmol/L (10-20); BUN (Urea Nitrogen) 16 mg/dL (9.8-20.1); CRP, High Sensitivity at Bryan 8.38 mg/dL (< or = 0.5); Calc. Creatinine Clearance 83 mL/min (70-130); Calcium 9.6 mg/dL (7.8-10.44); Carbon Dioxide 21 mmol/L (23-31); Chloride 110 mmol/L (98-107); Glucose 98 mg/dL (83-110); Magnesium 1.8 mg/dL (1.6-2.6); Potassium 3.6 mmol/L (3.5-5.1); Sodium 141 mmol/L (136-145)
[2025-01-11 06:20] LABS: #Basophils 0.05 10x3/uL (0.0-0.2); #Eosinophils 0.42 10x3/uL (0.0-0.7); #Monocytes 0.72 10x3/uL (0.11-0.59); #Neutrophils 5.01 10x3/uL (1.40-6.50); %Basophils 0.7 % (0.0-1.0); %Eosinophils 6.2 % (0.0-10.0); %Lymphocytes 8.5 % (21.0-51.0); %Monocytes 10.6 % (0.0-10.0); %Neutrophils 73.6 % (42.0-75.0); Hematocrit 38.4 % (36.0-47.0); Hemoglobin 12.6 g/dL (12.0-16.0); Mean Corpuscular Hemoglobin 30.7 pg (27.0-31.0); Mean Corpuscular Volume 93.7 fL (78.0-98.0); Platelet Count 128 10x3/uL (130-400); Red Blood Cell (RBC) Count 4.10 mill/uL (4.20-5.40); White Blood Cell (WBC) Count 6.81 10x3/uL (4.8-10.8)
[2025-01-11 06:21] LABS: Anion Gap 11 mmol/L (10-20); BUN (Urea Nitrogen) 15 mg/dL (9.8-20.1); Calc. Creatinine Clearance 87 mL/min (70-130); Calcium 9.4 mg/dL (7.8-10.44); Carbon Dioxide 24 mmol/L (23-31); Chloride 111 mmol/L (98-107); Glucose 105 mg/dL (83-110); Potassium 3.7 mmol/L (3.5-5.1); Sodium 142 mmol/L (136-145)
[2025-01-11 06:22] LABS: CRP, High Sensitivity at Bryan 5.37 mg/dL (< or = 0.5)
[2025-01-11 15:13] VITALS: BP 138/78; TEMP 98.5
== END 2025-01-11 15:19 | disposition home or self-care (01) | DRG 871 ==
LOC: ERS 01:03 → SUATTDRO 01:03 → T4-A 04:42
PROVIDERS: ADMIT Student in an Organized Health Care Education/Training Program; ATTEND Family Medicine
DX: A41.59 Other Gram-negative sepsis (principal); G93.41 Metabolic encephalopathy; L03.115 Cellulitis of right lower limb; N39.0 Urinary tract infection, site not specified; F31.9 Bipolar disorder, unspecified; F39 Unspecified mood [affective] disorder; N18.30 Chronic kidney disease, stage 3 unspecified; R74.01 Elevation of levels of liver transaminase levels; E86.9 Volume depletion, unspecified; I25.2 Old myocardial infarction; Z87.01 Personal history of pneumonia (recurrent); Z98.890 Other specified postprocedural states; Z90.2 Acquired absence of lung [part of]; Z90.49 Acquired absence of other specified parts of digestive tract; Z88.8 Allergy status to other drugs, medicaments and biological substances; Z88.2 Allergy status to sulfonamides
CPT/HCPCS: 36415; 36416; 51701; 70450; 71045; 72125; 80048; 80053; 80306; 80307; 81001; 83605; 83690; 83735; 83880; 84100; 84145; 84443; 85025; 85610; 85730; 86141; 87040; 87070; 87077; 87086; 87149; 87186; 87205; 87426; 93005; 96361; 96365; 96366; 96368; J0696; J1650; J2543; J3373; J7030

== ENCOUNTER 2025-01-20 12:17 | Emergency (ER) | payer MEDICARE, OTHER ==
[2025-01-20] MEDS ORDERED: LevoFLOXacin D5W 500 mg (100 mL) BAG ONE (14:59)
== END 2025-01-20 15:35 | disposition home or self-care (01) ==
LOC: ERS 12:17
DX: R60.0 Localized edema (principal); L03.115 Cellulitis of right lower limb
CPT/HCPCS: 96365; J1956

== ENCOUNTER 2025-01-25 13:41 | Outpatient (CLI) | payer MEDICARE, OTHER | END 2025-01-25 13:42 | disposition home or self-care (01) | LOC: BICRAD 13:41 | PROVIDERS: ATTEND Nurse Practitioner Family | DX: Z09 Encounter for follow-up examination after completed treatment for conditions other than malignant neoplasm (principal); L03.115 Cellulitis of right lower limb ==

== ENCOUNTER 2025-01-27 11:07 | Outpatient (CLI) | payer MEDICARE, OTHER | END 2025-01-27 11:08 | disposition home or self-care (01) | LOC: ULT 11:07 | PROVIDERS: ATTEND Nurse Practitioner Family | DX: L03.115 Cellulitis of right lower limb (principal); I70.201 Unspecified atherosclerosis of native arteries of extremities, right leg | CPT/HCPCS: 93923 ==